=== PATIENT | male | born 1960 | race Caucasian/White ===

== ENCOUNTER 2017-01-02 20:39 | Emergency (ER) | payer OTHER ==
[~2017-01-02] VITALS: Ht 175.3 cm; Wt 70.0 kg
[~2017-01-02 20:39] MED LIST: INDO25CA PO
[2017-01-02 20:41] VITALS: BP 153/89; PULSE 92; RESP 15; TEMP 97.8; O2SAT 97
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
== END 2017-01-02 21:15 | disposition left against medical advice (07) ==
LOC: NEPB 20:39
DX: R07.81 Pleurodynia (principal); I10 Essential (primary) hypertension; F17.210 Nicotine dependence, cigarettes, uncomplicated; F10.20 Alcohol dependence, uncomplicated; W17.89XA Other fall from one level to another, initial encounter; Y93.9 Activity, unspecified; Y92.9 Unspecified place or not applicable; Y99.9 Unspecified external cause status
CPT/HCPCS: 99283

== ENCOUNTER 2017-01-10 15:30 | Emergency (ER) | payer OTHER ==
[~2017-01-10] VITALS: Ht 175.3 cm; Wt 70.0 kg
--- NOTE | 2017-01-10 15:32 | PD ---
HPI Chief Complaint: shortness of breath, chest pain Time Seen by Provider: 15:32 Travel History International Travel<30 days: No Contact w/Intl Traveler<30days: No History of Present Illness HPI 56-year-old male came to the emergency room with history of difficulty breathing due to rib fractures that he was diagnosed with 2 weeks ago. Patient says that he was not sent home on any pain medication. Because of the pain he was unable to take deep breaths. Now the shortness of breath is getting worse. Patient is a smoker. The rib fracture was a result of a fall 2 weeks ago when he was seen in this emergency room. Upon looking at his past medical record from last visit it seems like patient had left against medical advise. Patient told me that he did not get any pain medication and hence he decided to leave. Patient has never been hospitalized for COPD or asthma. Patient was saturating 94% on room air in triage. He was hemodynamically stable otherwise. PFSH Past Medical History Narrative Medical List of his past medical history as reviewed from the nursing note. Cardiovascular Problems: Yes (HTN, ) Gout: Yes Seizures: Yes (ONE 5 YEARS AGO ) Past Surgical History Other Surgery: Yes (SKIN GRAFT ) Social History Alcohol Use: Yes (3 BEERS A DAY ) Tobacco Use: Yes (1/2 PACK A DAY ) Substance Use: No Allergies-Medications (Allergen,Severity, Reaction): Coded Allergies: No Known Allergies (Unverified , 01/02/17) Comments No known drug allergies. Reported Meds & Prescriptions Reported Meds & Active Scripts Active Hydrocodone-Acetaminophen 5-325 mg Tab 1 Tab PO Q6H PRN Prednisone 20 Mg Tab 20 Mg PO BID 5 Days Ventolin Hfa 18 GM Inh (Albuterol Sulfate) 90 Mcg/Act Aer 2 Puff INH Q4-6H PRN Narrative Medication Awaiting for the nurse to med reconciliation. Review of Systems Except as stated in HPI: all other systems reviewed are Neg Physical Exam Narrative GENERAL: Awake, alert, mild distress SKIN: Warm and dry. HEAD: Atraumatic. Normocephalic. EYES: Pupils equal and round. No scleral icterus. No injection or drainage. ENT: No nasal bleeding or discharge. Mucous membranes pink and moist. NECK: Trachea midline. No JVD. CARDIOVASCULAR: Regular rate and rhythm. No murmur appreciated. RESPIRATORY: Decreased breath sounds bilaterally with end expiratory wheeze GASTROINTESTINAL: Abdomen soft, non-tender, nondistended. Hepatic and splenic margins not palpable. MUSCULOSKELETAL: No obvious deformities. No clubbing. No cyanosis. No edema. NEUROLOGICAL: Awake and alert. No obvious cranial nerve deficits. Motor grossly within normal limits. Normal speech. PSYCHIATRIC: Appropriate mood and affect; insight and judgment normal. Data Data Last Documented VS Vital Signs Date Time Temp Pulse Resp B/P Pulse Ox O2 Delivery O2 Flow Rate FiO2 01/10/17 18:30 100 15 124/60 100 01/10/17 16:24 21 01/10/17 15:36 Room Air 01/10/17 15:33 98.3 Orders Chest, Single Ap (01/10/17 15:58) Ecg Monitoring (01/10/17 15:58) Iv Access Insert/Monitor (01/10/17 15:58) Oximetry (01/10/17 15:58) Oxygen Administration (01/10/17 15:58) Methylprednisolone So Succ Inj (Solumedr (01/10/17 16:00) Albuterol-Ipratropium Neb (Duoneb Neb) (01/10/17 16:00) Sodium Chloride 0.9% Flush (Ns Flush) (01/10/17 16:00) Ketorolac Inj (Toradol Inj) (01/10/17 16:00) Acetamin-Hydrocod 325-5 Mg ([place] 5-325 (01/10/17 16:00) Electrocardiogram (01/10/17 15:42) Albuterol-Ipratropium Neb (Duoneb Neb) (01/10/17 17:45) MDM Medical Decision Making Medical Screen Exam Complete: Yes Emergency Medical Condition: Yes Medical Record Reviewed: Yes Interpretation(s) Twelve-lead EKG was reviewed by me. Normal sinus rhythm, normal axis, nonspecific ST-T wave changes, tachycardia. Heart rate of 103 bpm. Differential Diagnosis Pneumothorax, pneumonia, COPD exacerbation, PE Narrative Course 4:30 PM awaiting for the blood test results and chest x-ray. I have ordered 3 duo nebs with IV Solu-Medrol bolus. I have ordered pain medication as well. 5:39 PM I have reassessed the patient and he sounds much better. He still has some end expiratory wheeze and I ordered 2 more albuterol nebulizers. Chest x- rays shows healing rib fracture, otherwise within normal limit. I will discharge the patient home. Procedures EKG Prior to Arrival: Yes Diagnosis Primary Impression: COPD with acute exacerbation Additional Impressions: Fracture of rib with routine healing Qualified Code: S22.32XD - Closed fracture of one rib of left side with routine healing, subsequent encounter Needs smoking cessation education Referrals: Primary Care Physician 2 days Additional Instructions: Please return to the ER if the condition worsens or any other new concerns. Otherwise follow-up with your primary care. Take the medications as per the prescription direction. Do not smoke. Med/Other Pt SpecificInfo: Prescription(s) given Scripts Hydrocodone-Acetaminophen 5-325 mg Tab1 Tab PO Q6H PRN (PAIN) #8 TAB Ref 0 Prov:Alejandrina Naqvi MD 01/10/17 Prednisone 20 Mg Tab20 Mg PO BID 5 Days Ref 0 Prov:Alejandrina Naqvi MD 01/10/17 Albuterol 18 GM Inh (Ventolin Hfa 18 GM Inh)90 Mcg/Act Aer2 Puff INH Q4-6H PRN ( SHORTNESS OF BREATH) #1 INHALER Ref 0 Prov:Alejandrina Naqvi MD 01/10/17 Disposition: 01 DISCHARGE HOME Condition: Stable Alejandrina Naqvi MD Jan 10, 2017 15:32
[2017-01-10 15:33] VITALS: BP 136/82; PULSE 100; RESP 15; TEMP 98.3; O2SAT 94
[2017-01-10 15:36] VITALS: O2SAT 97
[2017-01-10] MEDS ORDERED: SODIUM CHLORIDE 0.9% FLUSH 5 ML FLUSH IVF PRN (16:00)
[2017-01-10] MEDS ORDERED: methylPREDNISolone SOD SUCC 125 MG/2 ML VIAL IVP ONE (16:00)
[2017-01-10] MEDS ORDERED: KETOROLAC TROMETHAMINE 30 MG/ML (IVP) VIAL IV PUSH ONE (16:00)
[2017-01-10] MEDS ORDERED: ACETAMINOPHEN/HYDROcodone 325 MG/5 MG TAB PO ONE (16:00)
[2017-01-10] MEDS: RESP: ALBUTEROL 2.5 MG/IPRATROPIUM 0.5 MG NEB (SCH) INH ×3 (16:23→17:51)
[2017-01-10 16:24] VITALS: O2SAT 93
--- NOTE | 2017-01-10 17:06 | RADRPT ---
EXAM DATE/TIME: 01/10/2017 14:30 [facility] COMPARISON: CHEST SINGLE AP, October 10, 2016, 16:58. INDICATIONS : Patient fell two weeks ago and hit cement block on his back. She complains of chest pain. MEDICAL HISTORY : None. SURGICAL HISTORY : None. ENCOUNTER: Initial ACUITY: 2 weeks PAIN SCORE: 10/10 LOCATION: Left Ribs. FINDINGS: A single view of the chest demonstrates the lungs to be symmetrically aerated without evidence of mas s, infiltrate or effusion. The cardiomediastinal contours are unremarkable. Osseous structures are intact except for a healing fracture of left posterior lateral fourth rib. There is no pneumothorax. CONCLUSION: 1. No acute cardiopulmonary disease. 2. Healing fracture of the left posterior lateral fourth rib. Wiliam Daley MD on January 10, 2017 at 17:03 Board Certified Radiologist. This report was verified electronically.
[2017-01-10] MEDS ORDERED: HYDR-3516 PO (17:43)
[2017-01-10] MEDS ORDERED: PRED20 PO (17:43)
[2017-01-10] MEDS ORDERED: VENTAER INH (17:43)
[2017-01-10 18:30] VITALS: BP 124/60
--- NOTE | 2017-01-11 18:14 | EKG ---
Date Performed: 01/10/2017 Time Performed: 15:42:45 PTAGE: 56 years EKG: SINUS TACHYCARDIA MINIMAL ST DEPRESSION ABNORMAL RHYTHM ECG NO PREVIOUS TRACING DOCTOR: Cesar Batista Interpretating Date/Time 01/11/2017 18:12:12
== END 2017-01-10 18:43 | disposition home or self-care (01) ==
LOC: NEPE 15:30
DX: J44.1 Chronic obstructive pulmonary disease with (acute) exacerbation (principal); S22.32XD Fracture of one rib, left side, subsequent encounter for fracture with routine healing; R00.0 Tachycardia, unspecified; R06.00 Dyspnea, unspecified; F17.210 Nicotine dependence, cigarettes, uncomplicated; I10 Essential (primary) hypertension; W19.XXXD Unspecified fall, subsequent encounter
CPT/HCPCS: 71010; 93005; 94640; 94664; 96374; 96375; 99284; J1885; J2930

== ENCOUNTER 2017-03-07 15:11 | Emergency (ER) | payer OTHER ==
[~2017-03-07] VITALS: Ht 175.3 cm; Wt 71.0 kg
[~2017-03-07 15:11] MED LIST changes: +HYDR-3516 PO; -INDO25CA PO; +PRED20 PO; +VENTAER INH
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
[2017-03-07 15:54] VITALS: BP 141/78; PULSE 87; RESP 18; TEMP 98.2; O2SAT 99
[2017-03-07] MEDS ORDERED: ORPHENADRINE INJ 60 MG/2 ML AMP IM ONE (16:00)
[2017-03-07] MEDS ORDERED: KETOROLAC TROMETHAMINE 60 MG/2 ML (IM) VIAL IM ONE (16:00)
== END 2017-03-07 16:40 | disposition home or self-care (01) ==
LOC: NEPK 15:11
DX: M54.5 Low back pain (principal); G89.29 Other chronic pain
CPT/HCPCS: 96372; 99283; J1885; J2360

== ENCOUNTER 2017-03-28 16:17 | Emergency (ER) | payer OTHER ==
[~2017-03-28] VITALS: Ht 175.3 cm; Wt 72.0 kg
[2017-03-28 16:28] VITALS: PULSE 94; RESP 16; TEMP 98.8; O2SAT 95
[2017-03-28] MEDS ORDERED: SODIUM CHLOR 0.9% 1000 ML INJ 1,000 ML IV ONE (17:45)
[2017-03-28] MEDS ORDERED: SODIUM CHLORIDE 0.9% FLUSH 10 ML FLUSH IVF PRN (17:45)
[2017-03-28 17:54] VITALS: O2SAT 96
--- NOTE | 2017-03-28 18:02 | PD ---
HPI Chief Complaint: Fall Time Seen by Provider: 17:31 Travel History International Travel<30 days: No Contact w/Intl Traveler<30days: No Traveled to known affect area: No History of Present Illness HPI Patient is a 56-year-old male with history of hypertension and COPD, who presents to emergency room with complaints of right-sided chest pain. Patient reports that he was seen in the hospital on January 10, 2017 as he fell and broke 2 ribs on his right side 2 weeks prior. Patient reports that he still has pain to his right side of his ribs. Patient reports that now, it hurts when he takes a deep breath. Reports that it hurts when he moves or reports pain with slight motion to his right lower ribs. Reports that his chest pain is really right sided rib pain, denies diaphoresis, reports sob as he cannot take a deep breath with this pain. Denies cough/congestion, denies fevers or chills. Denies abdominal pain, nausea vomiting. Patient denies any new falls. Patient does admit to being an alcoholic, reports that he did drink 2 beers today prior to coming to the emergency room. FORMERLY [facility] Past Medical History Medical History: Denies Significant Hx Cardiovascular Problems: Yes (HTN) COPD: Yes Gout: Yes Hypertension: Yes Respiratory: Yes (copd) Seizures: Yes Past Surgical History Surgical History: No Previous Surgery Other Surgery: Yes (SKIN GRAFT ) Social History Alcohol Use: Yes (6 PACK ) Tobacco Use: Yes (1 PACK A DAY ) Substance Use: No Allergies-Medications (Allergen,Severity, Reaction): Coded Allergies: No Known Allergies (Unverified , 03/28/17) Reported Meds & Prescriptions Reported Meds & Active Scripts Active Ibuprofen 600 Mg Tab 600 Mg PO Q6H PRN Review of Systems General / Constitutional: No: Fever Eyes: No: Visual changes HENT: No: Headaches Cardiovascular: Positive: Chest Pain or Discomfort, Other (right-sided rib pain ), No: Tachycardia, Diaphoresis, Syncope Respiratory: Positive: Shortness of Breath Gastrointestinal: No: Abdominal Pain Genitourinary: No: Dysuria Musculoskeletal: No: Pain Skin: No Rash Neurologic: No: Weakness Psychiatric: No: Depression Endocrine: No: Polydipsia Hematologic/Lymphatic: No: Easy Bruising Physical Exam Narrative GENERAL: No acute distress, nontoxic, intoxicated SKIN: Focused skin assessment warm/dry. HEAD: Atraumatic. Normocephalic. EYES: Pupils equal and round. No scleral icterus. No injection or drainage. ENT: No nasal bleeding or discharge. Mucous membranes pink and moist. NECK: Trachea midline. No JVD. CARDIOVASCULAR: Regular rate and rhythm. No murmur appreciated. Patient with pain to his right lower ribs, pain is reproducible on exam RESPIRATORY: No accessory muscle use. Clear to auscultation. Breath sounds equal bilaterally. GASTROINTESTINAL: Abdomen soft, non-tender, nondistended. Hepatic and splenic margins not palpable. MUSCULOSKELETAL: No obvious deformities. No clubbing. No cyanosis. No edema. NEUROLOGICAL: Awake and alert. No obvious cranial nerve deficits. Motor grossly within normal limits. Normal speech. PSYCHIATRIC: Appropriate mood and affect; insight and judgment normal. Data Data Last Documented VS Vital Signs Date Time Temp Pulse Resp B/P Pulse Ox O2 Delivery O2 Flow Rate FiO2 03/28/17 19:07 79 22 127/82 95 Room Air 03/28/17 17:54 2 03/28/17 16:28 98.8 Orders Ckmb (Isoenzyme) Profile (03/28/17 17:42) Complete Blood Count With Diff (03/28/17 17:42) Comprehensive Metabolic Panel (03/28/17 17:42) D-Dimer (03/28/17 17:42) Magnesium (Mg) (03/28/17 17:42) Prothrombin Time / Inr (Pt) (03/28/17 17:42) Act Partial Throm Time (Ptt) (03/28/17 17:42) Troponin I (03/28/17 17:42) Lipase (03/28/17 17:42) Chest, Single Ap (03/28/17 17:42) Ecg Monitoring (03/28/17 17:42) Iv Access Insert/Monitor (03/28/17 17:42) Oximetry (03/28/17 17:42) Sodium Chloride 0.9% Flush (Ns Flush) (03/28/17 17:45) Drug Screen, Random Urine (03/28/17 17:42) Alcohol (Ethanol) (03/28/17 17:42) Sodium Chlor 0.9% 1000 Ml Inj (Ns 1000 M (03/28/17 17:45) Ketorolac Inj (Toradol Inj) (03/28/17 19:15) Ct Pulmonary Angiogram (03/28/17 19:11) CKMB (03/28/17 18:02) CKMB% (03/28/17 18:02) Iohexol 350 Inj (Omnipaque 350 Inj) (03/28/17 20:13) Electrocardiogram (03/28/17 16:30) Ckmb (Isoenzyme) Profile (03/28/17 21:01) Troponin I (03/28/17 21:01) CKMB (03/28/17 21:08) CKMB% (03/28/17 21:08) Labs Laboratory Tests Test 03/28/17 03/28/17 03/28/17 18:02 19:55 21:08 Prothrombin Time 11.0 SEC Prothromb Time International 1.0 RATIO Ratio Activated Partial 28.7 SEC Thromboplast Time D-Dimer Quantitative (PE/DVT) 0.80 MG/L FEU Sodium Level 146 MEQ/L Potassium Level 3.8 MEQ/L Chloride Level 112 MEQ/L Carbon Dioxide Level 24.0 MEQ/L Anion Gap 10 MEQ/L Blood Urea Nitrogen 6 MG/DL Creatinine 0.60 MG/DL Estimat Glomerular Filtration 140 ML/MIN Rate Random Glucose 89 MG/DL Calcium Level 7.9 MG/DL Magnesium Level 1.8 MG/DL Total Bilirubin 0.3 MG/DL Aspartate Amino Transf 142 U/L (AST/SGOT) Alanine Aminotransferase 92 U/L (ALT/SGPT) Alkaline Phosphatase 102 U/L Total Creatine Kinase 275 U/L 187 U/L Creatine Kinase MB 2.1 NG/ML 1.8 NG/ML Troponin I LESS THAN 0.02 LESS THAN 0.02 NG/ML NG/ML Total Protein 6.8 GM/DL Albumin 3.2 GM/DL Lipase 276 U/L Ethyl Alcohol Level 352 MG/DL White Blood Count 3.2 TH/MM3 Red Blood Count 3.90 MIL/MM3 Hemoglobin 13.1 GM/DL Hematocrit 40.1 % Mean Corpuscular Volume 102.6 FL Mean Corpuscular Hemoglobin 33.7 PG Mean Corpuscular Hemoglobin 32.8 % Concent Red Cell Distribution Width 14.0 % Platelet Count 123 TH/MM3 Mean Platelet Volume 8.6 FL Neutrophils (%) (Auto) 37.7 % Lymphocytes (%) (Auto) 42.4 % Monocytes (%) (Auto) 12.5 % Eosinophils (%) (Auto) 5.5 % Basophils (%) (Auto) 1.9 % Neutrophils # (Auto) 1.2 TH/MM3 Lymphocytes # (Auto) 1.3 TH/MM3 Monocytes # (Auto) 0.4 TH/MM3 Eosinophils # (Auto) 0.2 TH/MM3 Basophils # (Auto) 0.1 TH/MM3 CBC Comment DIFF FINAL Differential Comment MDM Medical Decision Making Medical Screen Exam Complete: Yes Emergency Medical Condition: Yes Interpretation(s) EKG at 1630: NSR at 92bpm, qt/qtc: 360/409, nonspecific st and t wave changes, ekg similar to ekg from 01/10/17 Vital Signs Date Time Temp Pulse Resp B/P Pulse Ox O2 Delivery O2 Flow Rate FiO2 03/28/17 16:28 98.8 94 16 95 Differential Diagnosis ACS, PE, rib fracture with routine healing, pneumothorax, costochondritis Narrative Course Patient is a 56-year-old male who presents to emergency room with complaints of right-sided rib pain/chest pain. Reports that the pain began a while ago after he fell and had right sided rib fractures. Patient was seen in emergency room on January 10, 2017 as he reported that he fell 2 weeks prior to that and broke 2 right sided ribs. Patient reports that pain never went away and is now worse. Patient reports shortness of breath of symptoms. Patient reports pain with deep breath, and with movement. Denies fever/chills. Denies n/v. Patient resting comfortably on exam. Plan to obtain lab work and xray of chest. EKG with no acute st or t wave changes. I do not believe that patient is having a cardiac event at this time as patient reports pain exactly where his rib fractures are. Patient's pulse ox is 94% on room air - he does have hx of COPD and is a 1ppd smoker, d.dimer ordered to r/o PE. Patient with no recent travels/trips Plan to monitor patient. Laboratory Tests Test 03/28/17 03/28/17 18:02 19:55 Prothrombin Time 11.0 SEC (9.8-11.6) Prothromb Time International 1.0 RATIO Ratio Activated Partial 28.7 SEC Thromboplast Time (24.3-30.1) D-Dimer Quantitative (PE/DVT) 0.80 MG/L FEU (0.00-0.50) Sodium Level 146 MEQ/L (136-145) Potassium Level 3.8 MEQ/L (3.5-5.1) Chloride Level 112 MEQ/L (98-107) Carbon Dioxide Level 24.0 MEQ/L (21.0-32.0) Anion Gap 10 MEQ/L (5-15) Blood Urea Nitrogen 6 MG/DL (7-18) Creatinine 0.60 MG/DL (0.60-1.30) Estimat Glomerular Filtration 140 ML/MIN Rate (>89) Random Glucose 89 MG/DL (74-106) Calcium Level 7.9 MG/DL (8.5-10.1) Magnesium Level 1.8 MG/DL (1.5-2.5) Total Bilirubin 0.3 MG/DL (0.2-1.0) Aspartate Amino Transf 142 U/L (15-37) (AST/SGOT) Alanine Aminotransferase 92 U/L (12-78) (ALT/SGPT) Alkaline Phosphatase 102 U/L (45-117) Total Creatine Kinase 275 U/L (39-308) Creatine Kinase MB 2.1 NG/ML (0.5-3.6) Troponin I LESS THAN 0.02 NG/ML (0.02-0.05) Total Protein 6.8 GM/DL (6.4-8.2) Albumin 3.2 GM/DL (3.4-5.0) Lipase 276 U/L (73-393) Ethyl Alcohol Level 352 MG/DL (0-5) White Blood Count 3.2 TH/MM3 (4.0-11.0) Red Blood Count 3.90 MIL/MM3 (4.50-5.90) Hemoglobin 13.1 GM/DL (13.0-17.0) Hematocrit 40.1 % (39.0-51.0) Mean Corpuscular Volume 102.6 FL (80.0-100.0) Mean Corpuscular Hemoglobin 33.7 PG (27.0-34.0) Mean Corpuscular Hemoglobin 32.8 % Concent (32.0-36.0) Red Cell Distribution Width 14.0 % (11.6-17.2) Platelet Count 123 TH/MM3 (150-450) Mean Platelet Volume 8.6 FL (7.0-11.0) Neutrophils (%) (Auto) 37.7 % (16.0-70.0) Lymphocytes (%) (Auto) 42.4 % (9.0-44.0) Monocytes (%) (Auto) 12.5 % (0.0-8.0) Eosinophils (%) (Auto) 5.5 % (0.0-4.0) Basophils (%) (Auto) 1.9 % (0.0-2.0) Neutrophils # (Auto) 1.2 TH/MM3 (1.8-7.7) Lymphocytes # (Auto) 1.3 TH/MM3 (1.0-4.8) Monocytes # (Auto) 0.4 TH/MM3 (0-0.9) Eosinophils # (Auto) 0.2 TH/MM3 (0-0.4) Basophils # (Auto) 0.1 TH/MM3 (0-0.2) CBC Comment DIFF FINAL Differential Comment Last Impressions CT Angiography 03/28/17 1911 Signed Impressions: Service Date/Time: March 20:00 - CONCLUSION: There is no evidence for PE for technique. K. Lauro Song MD Chest X-Ray 03/28/17 1742 Signed Impressions: Service Date/Time: March 17:44 - CONCLUSION: No acute disease. Wiliam Daley MD CTA with evidence of PE Reviewed all labs and all studies with patient in detail. Plan to repeat cardiac enzyme, will have patient follow-up with his primary care doctor and return to emergency medicine needed. Second set of cardiac enzymes negative, patient's chest pain most likely musculoskeletal and not cardiac in nature. Patient will follow-up with primary care doctor as well as cardiology and will return to emergency room as needed. 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
--- NOTE | 2017-03-28 18:06 | RADRPT ---
EXAM DATE/TIME: 03/28/2017 17:44 [facility] COMPARISON: CHEST SINGLE AP, January 10, 2017, 14:30. INDICATIONS : Right side rib pain, fell MEDICAL HISTORY : Right rib fractures SURGICAL HISTORY : None. ENCOUNTER: [facility] ACUITY: 3 weeks PAIN SCORE: 8/10 LOCATION: Right chest FINDINGS: A single view of the chest demonstrates the lungs to be symmetrically aerated without evidence of mas s, infiltrate or effusion. The cardiomediastinal contours are unremarkable. Osseous structures are intact. CONCLUSION: No acute disease. Wiliam Daley MD on March 28, 2017 at 18:04 Board Certified Radiologist. This report was verified electronically.
[2017-03-28 18:52] VITALS: BP 142/85; PULSE 79; RESP 18; O2SAT 96
[2017-03-28 18:56] LABS: APTT (PATIENT) 28.7 SEC (24.3-30.1)
[2017-03-28 19:07] VITALS: BP 127/82; PULSE 79; RESP 22; O2SAT 95
[2017-03-28 19:10] LABS: ALKALINE PHOSPHATASE 102 U/L (45-117); ALT (GPT) 92 U/L (12-78); ANION GAP 10 MEQ/L (5-15); AST (GOT) 142 U/L (15-37); BLOOD UREA NITROGEN 6 MG/DL (7-18); CHLORIDE 112 MEQ/L (98-107); CREATINE KINASE 275 U/L (39-308); GLOMERULAR FILTRATION RATE 140 ML/MIN (>89); MAGNESIUM 1.8 MG/DL (1.5-2.5); POTASSIUM 3.8 MEQ/L (3.5-5.1); SODIUM (NA) 146 MEQ/L (136-145); TOTAL BILIRUBIN ADULT 0.3 MG/DL (0.2-1.0)
[2017-03-28] MEDS ORDERED: KETOROLAC TROMETHAMINE 30 MG/ML (IVP) VIAL IV PUSH ONE (19:15)
[2017-03-28 19:30] LABS: CKMB 2.1 NG/ML (0.5-3.6)
[2017-03-28 20:03] LABS: AUTOMATED NEUTROPHIL # 1.2 TH/MM3 (1.8-7.7); BASOPHIL # 0.1 TH/MM3 (0-0.2); BASOPHIL % 1.9 % (0.0-2.0); EOSINOPHIL # 0.2 TH/MM3 (0-0.4); EOSINOPHIL % 5.5 % (0.0-4.0); HEMATOCRIT 40.1 % (39.0-51.0); HEMO FLAGS DIFF FINAL; LYMPH % 42.4 % (9.0-44.0); LYMPHOCYTE # 1.3 TH/MM3 (1.0-4.8); MEAN CELL VOLUME 102.6 FL (80.0-100.0); MEAN CORPUSCULAR HEMOGLOBIN 33.7 PG (27.0-34.0); MEAN CORPUSCULAR HGB CONC 32.8 % (32.0-36.0); MONO % 12.5 % (0.0-8.0); NEUT % 37.7 % (16.0-70.0); PLATELET COUNT 123 TH/MM3 (150-450); WHITE BLOOD COUNT 3.2 TH/MM3 (4.0-11.0)
[2017-03-28] MEDS ORDERED: IOHEXOL 350 MG/ML 10 ML VIAL (for RAD DIAG) IV ONE (20:13)
--- NOTE | 2017-03-28 20:27 | RADRPT ---
EXAM DATE/TIME: 03/28/2017 20:00 [facility] COMPARISON: No previous studies available for comparison. INDICATIONS : Right rib pain ,chest pain fell two weeks ago. IV CONTRAST: 50 cc Omnipaque 350 (iohexol) IV RADIATION DOSE: 23.28 CTDIvol (mGy) MEDICAL HISTORY : Hypertension. SURGICAL HISTORY : None. ENCOUNTER: Initial ACUITY: 1 day PAIN SCALE: 10/10 LOCATION: Right chest upper TECHNIQUE: Volumetric scanning of the chest was performed using a pulmonary embolism protocol MIP images were re constructed. Using automated exposure control and adjustment of the mA and/or kV according to patien t size, radiation dose was kept as low as reasonably achievable to obtain optimal diagnostic quality images. FINDINGS: The lungs are clear without infiltrate, nodule, or mass except for COPD changes with areas of linear and interstitial scarrings in anterior lungs bilaterally. There is no pleural effusion. No apprecia ble pathological adenopathy is seen within the mediastinum. There is no evidence for PE for technique . CONCLUSION: There is no evidence for PE for technique. yRan Song MD on March 28, 2017 at 20:23 Board Certified Radiologist. This report was verified electronically.
--- NOTE | 2017-03-28 21:00 | EKG ---
Date Performed: 03/28/2017 Time Performed: 16:30:43 PTAGE: 56 years EKG: Sinus rhythm Borderline NONSPECIFIC ST & T-WAVE ABNORMALITY BORDERLINE ECG NO SIGNIFICANT CHANGE FROM PRIOR ELECT ROCARDIOGRAM. PREVIOUS TRACING : 01/10/2017 15.42 DOCTOR: Jose Camp Interpretating Date/Time 03/28/2017 20:59:46
[2017-03-28] MEDS ORDERED: IBUP-232 PO (21:05)
[2017-03-28 21:35] LABS: CREATINE KINASE 187 U/L (39-308)
[2017-03-28 21:47] LABS: CKMB 1.8 NG/ML (0.5-3.6)
[2017-03-29 06:57] VITALS: BP 174/89
== END 2017-03-29 06:58 | disposition home or self-care (01) ==
LOC: NEPD 16:17
DX: S22.32XD Fracture of one rib, left side, subsequent encounter for fracture with routine healing (principal); F10.120 Alcohol abuse with intoxication, uncomplicated; R07.1 Chest pain on breathing; I10 Essential (primary) hypertension; F17.210 Nicotine dependence, cigarettes, uncomplicated; Y90.8 Blood alcohol level of 240 mg/100 ml or more; W19.XXXD Unspecified fall, subsequent encounter
CPT/HCPCS: 71010; 71275; 80053; 80307; 82550; 82552; 83690; 83735; 84484; 85025; 85379; 85610; 85730; 93005; 96361; 96374; 99284; J1885; J7030; Q9967

== ENCOUNTER 2017-06-06 14:22 | Emergency (ER) | payer OTHER ==
[~2017-06-06] VITALS: Ht 175.3 cm; Wt 70.0 kg
[~2017-06-06 14:22] MED LIST changes: -HYDR-3516 PO; +IBUP-232 PO; -PRED20 PO; -VENTAER INH
[2017-06-06 14:36] VITALS: BP 107/74; PULSE 90; RESP 18; TEMP 98.1; O2SAT 97
[2017-06-06] MEDS ORDERED: SODIUM CHLOR 0.9% 1000 ML INJ 1,000 ML IV SCH (14:37)
[2017-06-06 14:39] VITALS: O2SAT 97
--- NOTE | 2017-06-06 14:41 | PD ---
HPI Chief Complaint: syncope Time Seen by Provider: 14:30 Travel History International Travel<30 days: No Contact w/Intl Traveler<30days: No Traveled to known affect area: No History of Present Illness HPI This is a 56-year-old male with history of COPD and hypertension, tobacco use, seen here several times in the past for alcohol intoxication. He presents via EMS for evaluation of syncope, chest pain. He reports that around noon today he was standing near some steps speaking to some people and he had a syncopal event. He awoke on the ground. There was no reported seizure activity although he does have a history of seizures in the past. He is complaining of pain to the left side of his anterior chest as well as pain to the right posterior rib cage. Pain is a sharp pain that is worse with movement and inspiration. He endorses alcohol use throughout the morning. He denies shortness of breath, headache, neck or back pain, injury to the extremities. He was given 162 mg of aspirin and one nitroglycerin via EMS. He has no other complaints. PFSH Past Medical History Cardiovascular Problems: Yes (HTN) COPD: Yes Gout: Yes Hypertension: Yes Respiratory: Yes (copd) Seizures: Yes Past Surgical History Other Surgery: Yes (SKIN GRAFT ) Social History Alcohol Use: Yes (6 PACK ) Tobacco Use: Yes (1 PACK A DAY ) Substance Use: No Allergies-Medications (Allergen,Severity, Reaction): Coded Allergies: No Known Allergies (Unverified , 03/28/17) Reported Meds & Prescriptions Reported Meds & Active Scripts Active Ibuprofen 600 Mg Tab 600 Mg PO Q6H PRN Review of Systems Except as stated in HPI: all other systems reviewed are Neg Physical Exam Narrative GENERAL: This is a well-nourished male who is in no acute distress. He has slurred speech, he smells of alcohol. 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 HEAD: Atraumatic. Normocephalic. EYES: Pupils equal and round. No scleral icterus. No injection or drainage. ENT: No nasal bleeding or discharge. Mucous membranes pink and moist. NECK: Trachea midline. No JVD. CARDIOVASCULAR: Regular rate and rhythm. No murmur appreciated. RESPIRATORY: No accessory muscle use. Clear to auscultation. Breath sounds equal bilaterally. Mild wheezing bilaterally. GASTROINTESTINAL: Abdomen soft, non-tender, nondistended. Hepatic and splenic margins not palpable. MUSCULOSKELETAL: No obvious deformities. There is tenderness to palpation to the anterior left chest wall and posterior right rib cage. There is no bruising or soft tissue swelling. There is no lower extremity edema. NEUROLOGICAL: Awake and alert. No obvious cranial nerve deficits. Motor grossly within normal limits. Slurred speech. PSYCHIATRIC: Appropriate mood and affect; insight and judgment normal. Data Data Last Documented VS Vital Signs Date Time Temp Pulse Resp B/P Pulse Ox O2 Delivery O2 Flow Rate FiO2 06/06/17 15:41 97 3.00 06/06/17 14:39 Room Air 06/06/17 14:36 98.1 90 18 107/74 Orders Electrocardiogram (06/06/17 14:37) Complete Blood Count With Diff (06/06/17 14:37) Comprehensive Metabolic Panel (06/06/17 14:37) Magnesium (Mg) (06/06/17 14:37) Ckmb (Isoenzyme) Profile (06/06/17 14:37) Troponin I (06/06/17 14:37) Chest, Single Ap (06/06/17 14:37) Ct Brain W/O Iv Contrast(Rout) (06/06/17 14:37) Ecg Monitoring (06/06/17 14:37) Iv Access Insert/Monitor (06/06/17 14:37) Oximetry (06/06/17 14:37) Sodium Chloride 0.9% Flush (Ns Flush) (06/06/17 14:45) Sodium Chlor 0.9% 1000 Ml Inj (Ns 1000 M (06/06/17 14:37) Alcohol (Ethanol) (06/06/17 14:37) Albuterol-Ipratropium Neb (Duoneb Neb) (06/06/17 14:45) CKMB (06/06/17 14:45) CKMB% (06/06/17 14:45) Labs Laboratory Tests Test 06/06/17 14:45 White Blood Count 7.0 TH/MM3 Red Blood Count 3.75 MIL/MM3 Hemoglobin 12.7 GM/DL Hematocrit 36.8 % Mean Corpuscular Volume 98.0 FL Mean Corpuscular Hemoglobin 33.9 PG Mean Corpuscular Hemoglobin 34.6 % Concent Red Cell Distribution Width 12.2 % Platelet Count 130 TH/MM3 Mean Platelet Volume 9.2 FL Neutrophils (%) (Auto) 57.9 % Lymphocytes (%) (Auto) 32.1 % Monocytes (%) (Auto) 6.0 % Eosinophils (%) (Auto) 3.5 % Basophils (%) (Auto) 0.5 % Neutrophils # (Auto) 4.1 TH/MM3 Lymphocytes # (Auto) 2.2 TH/MM3 Monocytes # (Auto) 0.4 TH/MM3 Eosinophils # (Auto) 0.2 TH/MM3 Basophils # (Auto) 0.0 TH/MM3 CBC Comment DIFF FINAL Differential Comment Sodium Level 141 MEQ/L Potassium Level 3.4 MEQ/L Chloride Level 105 MEQ/L Carbon Dioxide Level 27.5 MEQ/L Anion Gap 9 MEQ/L Blood Urea Nitrogen 11 MG/DL Creatinine 0.56 MG/DL Estimat Glomerular Filtration 151 ML/MIN Rate Random Glucose 93 MG/DL Calcium Level 7.9 MG/DL Magnesium Level 1.7 MG/DL Total Bilirubin 0.5 MG/DL Aspartate Amino Transf 40 U/L (AST/SGOT) Alanine Aminotransferase 56 U/L (ALT/SGPT) Alkaline Phosphatase 105 U/L Total Creatine Kinase 292 U/L Creatine Kinase MB 2.2 NG/ML Troponin I LESS THAN 0.02 NG/ML Total Protein 7.5 GM/DL Albumin 3.3 GM/DL Ethyl Alcohol Level 419 MG/DL MDM Medical Decision Making Medical Screen Exam Complete: Yes Emergency Medical Condition: Yes Medical Record Reviewed: Yes Interpretation(s) EKG normal sinus rhythm, rate 88, no ischemic ST changes or T-wave inversions. Differential Diagnosis Rib fracture, pneumothorax, hemothorax, contusion, strain, acute coronary syndrome, pulmonary embolism, COPD exacerbation, intracranial hemorrhage, syncope, seizure, dehydration, electrolyte abnormality Narrative Course 56-year-old male presents after having had a syncopal event. He fell and is complaining of left-sided chest wall pain and right-sided posterior rib cage pain. This is reproducible with palpation. He denies any other injuries. He admits to drinking alcohol today. He reports that he has been outside all morning in the heat because he is homeless. This fall was witnessed and there was no seizure activity. Per chart review the patient was seen here on March 28 intoxicated and he had a negative CT pulmonary angiogram. I don't suspect a pulmonary embolism today and he has no evidence of DVT. Plan is for basic lab work, EKG, ECG monitoring pulse oximetry, chest x-ray, CT of the brain. He'll be given DuoNeb therapy for his wheezing. Lab work and imaging studies have been reviewed. His cardiac enzymes are negative. Potassium is 3.4. Alcohol level was extremely elevated at 419 which is likely the etiology for his fall. Chest x-ray reveals a possible acute minimally displaced right lateral seventh rib fracture. No pneumothorax. CT the brain is normal. At this point in time the plan will be to allow the patient remain here until he is clinically sober and then he will be discharged. Procedures EKG Prior to Arrival: Yes Diagnosis Primary Impression: Alcohol intoxication Qualified Code: F10.920 - Alcohol intoxication, uncomplicated Additional Impression: Right rib fracture Qualified Code: S22.31XA - Closed fracture of one rib of right side, initial encounter Additional Instructions: Take [id number] Tylenol or Motrin for discomfort. Consider decreasing the amount of alcohol that you drink. Follow-up with primary care. Return for any emergent medical conditions. Med/Other Pt SpecificInfo: No Change to Meds Disposition: 01 DISCHARGE HOME Condition: Stable Carlos Herrera Jun 06, 2017 14:41
[2017-06-06] MEDS ORDERED: RESP: ALBUTEROL 2.5 MG/IPRATROPIUM 0.5 MG NEB (SCH) INH ONE (14:45)
[2017-06-06] MEDS ORDERED: SODIUM CHLORIDE 0.9% FLUSH 10 ML FLUSH IVF PRN (14:45)
[2017-06-06 15:11] LABS: AUTOMATED NEUTROPHIL # 4.1 TH/MM3 (1.8-7.7); BASOPHIL % 0.5 % (0.0-2.0); EOSINOPHIL # 0.2 TH/MM3 (0-0.4); EOSINOPHIL % 3.5 % (0.0-4.0); HEMATOCRIT 36.8 % (39.0-51.0); HEMO FLAGS DIFF FINAL; LYMPH % 32.1 % (9.0-44.0); LYMPHOCYTE # 2.2 TH/MM3 (1.0-4.8); MEAN CORPUSCULAR HEMOGLOBIN 33.9 PG (27.0-34.0); MEAN CORPUSCULAR HGB CONC 34.6 % (32.0-36.0); NEUT % 57.9 % (16.0-70.0); PLATELET COUNT 130 TH/MM3 (150-450); RED BLOOD COUNT 3.75 MIL/MM3 (4.50-5.90); RED CELL DISTRIBUTION WIDTH 12.2 % (11.6-17.2)
--- NOTE | 2017-06-06 15:20 | RADRPT ---
EXAM DATE/TIME: 06/06/2017 15:03 [facility] COMPARISON: No previous studies available for comparison. INDICATIONS : syncope. RADIATION DOSE: 30.59 CTDIvol (mGy) MEDICAL HISTORY : Seizures. Cardiovascular disease Hypertension. SURGICAL HISTORY : None. ENCOUNTER: Initial ACUITY: 1 day PAIN SCALE: 3/10 LOCATION: Bilateral cranial posterior region. TECHNIQUE: Multiple contiguous axial images were obtained of the head. Using automated exposure control and adj ustment of the mA and/or kV according to patient size, radiation dose was kept as low as reasonably a chievable to obtain optimal diagnostic quality images. DICOM format image data is available electro nically for review and comparison. FINDINGS: CEREBRUM: There is mild cerebral atrophy. Ventricles are normal. There is mild periventricular white matter low attenuation. No evidence of midline shift, mass lesion, hemorrhage or acute infarction. No extra-a xial fluid collections are seen. POSTERIOR FOSSA: The cerebellum and brainstem demonstrate no abnormality. The 4th ventricle is midline. The cerebell opontine angle is unremarkable. EXTRACRANIAL: The visualized portion of the orbits is intact. SKULL: The calvaria is intact. No evidence of skull fracture. CONCLUSION: 1. No acute intracranial abnormality is identified. 2. Chronic changes include mild cerebral atrophy and mild periventricular white matter low attenuatio n. Cornel Sol MD on June 06, 2017 at 15:16 Board Certified Radiologist. This report was verified electronically.
[2017-06-06 15:23] LABS: ALT (GPT) 56 U/L (12-78); ANION GAP 9 MEQ/L (5-15); AST (GOT) 40 U/L (15-37); BICARBONATE 27.5 MEQ/L (21.0-32.0); BLOOD UREA NITROGEN 11 MG/DL (7-18); CHLORIDE 105 MEQ/L (98-107); GLOMERULAR FILTRATION RATE 151 ML/MIN (>89); MAGNESIUM 1.7 MG/DL (1.5-2.5); POTASSIUM 3.4 MEQ/L (3.5-5.1); SODIUM (NA) 141 MEQ/L (136-145)
[2017-06-06 15:27] LABS: ALKALINE PHOSPHATASE 105 U/L (45-117); CREATINE KINASE 292 U/L (39-308); TOTAL BILIRUBIN ADULT 0.5 MG/DL (0.2-1.0)
--- NOTE | 2017-06-06 15:27 | RADRPT ---
EXAM DATE/TIME: 06/06/2017 14:40 [facility] COMPARISON: CHEST SINGLE AP, March 28, 2017, 17:44. INDICATIONS : Fall from concrete steps onto back. Chest pain. Short of breath. MEDICAL HISTORY : Hypertension. SURGICAL HISTORY : None. ENCOUNTER: Initial ACUITY: 1 day PAIN SCORE: 5/10 LOCATION: Bilateral chest FINDINGS: Portable upright AP view of the chest demonstrates a normal-sized cardiac silhouette. No effusion, co nsolidation, or pneumothorax identified. There is a suspected minimally displaced acute fracture invo lving the right lateral seventh rib. There are additional old rib fractures bilaterally. There are si gns of old trauma and are stable in the distal right clavicle. CONCLUSION: 1. Possible acute minimally displaced right lateral seventh rib fracture. Suggest correlation for suzy n at this site. No pneumothorax is present. 2. Otherwise, no acute cardiopulmonary abnormality is visualized. Cornel Sol MD on June 06, 2017 at 15:20 Board Certified Radiologist. This report was verified electronically.
[2017-06-06 15:41] VITALS: O2SAT 97
[2017-06-06 15:47] LABS: CKMB 2.2 NG/ML (0.5-3.6)
[2017-06-06] MEDS ORDERED: POTASSIUM CHLORIDE 20 MEQ CONTROLLED RELEASE TAB PO ONE (16:15)
[2017-06-06 18:24] VITALS: BP 105/69; PULSE 94; RESP 16; O2SAT 99
[2017-06-06 21:11] VITALS: BP 108/61; PULSE 88; RESP 16; O2SAT 97
[2017-06-07 07:31] VITALS: BP 132/92; PULSE 98; RESP 16; TEMP 98.5; O2SAT 98
--- NOTE | 2017-06-07 13:51 | EKG ---
Date Performed: 06/06/2017 Time Performed: 14:40:33 PTAGE: 56 years EKG: Sinus rhythm NORMAL ECG Compared to prior tracing no significant change PREVIOUS TRACING : 03/28/2017 16.30 DOCTOR: Jurgen Warren Interpretating Date/Time 06/07/2017 13:49:39
== END 2017-06-07 07:49 | disposition home or self-care (01) ==
LOC: NEPC 14:22 → NEPD 06-07 07:49
DX: F10.120 Alcohol abuse with intoxication, uncomplicated (principal); Y90.8 Blood alcohol level of 240 mg/100 ml or more; S22.31XA Fracture of one rib, right side, initial encounter for closed fracture; R55 Syncope and collapse; R07.9 Chest pain, unspecified; R06.02 Shortness of breath; I10 Essential (primary) hypertension; W10.9XXA Fall (on) (from) unspecified stairs and steps, initial encounter; Y93.9 Activity, unspecified; Y92.9 Unspecified place or not applicable; F17.210 Nicotine dependence, cigarettes, uncomplicated
CPT/HCPCS: 70450; 71010; 80053; 80307; 82550; 82552; 83735; 84484; 85025; 93005; 94664; 96360; 99285; J7030

== ENCOUNTER 2017-06-25 21:58 | Emergency (ER) | payer OTHER ==
[~2017-06-25] VITALS: Ht 175.3 cm; Wt 69.0 kg
[2017-06-25 22:04] VITALS: BP 131/83; PULSE 91; RESP 20; TEMP 97.6; O2SAT 95
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
[2017-06-25] MEDS ORDERED: SODIUM CHLOR 0.9% 1000 ML INJ 1,000 ML IV ONE (22:45)
[2017-06-25] MEDS ORDERED: THIAMINE INJ 100 MG in SODIUM CHLORIDE 0.9% INJ 100 ML IV ONE (22:45)
--- NOTE | 2017-06-25 22:55 | RADRPT ---
EXAM DATE/TIME: 06/25/2017 22:36 [facility] COMPARISON: CHEST SINGLE AP, June 06, 2017, 14:40. INDICATIONS : Syncope, cough. MEDICAL HISTORY : Hypertension. SURGICAL HISTORY : None. ENCOUNTER: Initial ACUITY: 1 day PAIN SCORE: 0/10 LOCATION: Bilateral chest FINDINGS: A single view of the chest demonstrates the lungs to be symmetrically aerated without evidence of mas s, infiltrate or effusion. The cardiomediastinal contours are unremarkable. Old bilateral rib fractu res. CONCLUSION: No acute disease. Antonio Moore MD on June 25, 2017 at 22:53 Board Certified Radiologist. This report was verified electronically.
[2017-06-25 23:00] LABS: AUTOMATED NEUTROPHIL # 3.7 TH/MM3 (1.8-7.7); BASOPHIL # 0.1 TH/MM3 (0-0.2); BASOPHIL % 2.1 % (0.0-2.0); EOSINOPHIL # 0.1 TH/MM3 (0-0.4); EOSINOPHIL % 2.2 % (0.0-4.0); HEMATOCRIT 41.5 % (39.0-51.0); HEMO FLAGS DIFF FINAL; LYMPHOCYTE # 2.2 TH/MM3 (1.0-4.8); MEAN CELL VOLUME 102.1 FL (80.0-100.0); MEAN CORPUSCULAR HEMOGLOBIN 34.8 PG (27.0-34.0); MEAN CORPUSCULAR HGB CONC 34.1 % (32.0-36.0); MONO % 8.3 % (0.0-8.0); NEUT % 54.4 % (16.0-70.0); PLATELET COUNT 205 TH/MM3 (150-450); RED BLOOD COUNT 4.07 MIL/MM3 (4.50-5.90); RED CELL DISTRIBUTION WIDTH 13.3 % (11.6-17.2); WHITE BLOOD COUNT 6.7 TH/MM3 (4.0-11.0)
[2017-06-25 23:12] LABS: PROTHROMBIN TIME - PATIENT 11.4 SEC (9.8-11.6)
[2017-06-25 23:19] LABS: APTT (PATIENT) 30.5 SEC (24.3-30.1)
[2017-06-25 23:26] LABS: ALT (GPT) 580 U/L (12-78); ANION GAP 10 MEQ/L (5-15); BICARBONATE 26.4 MEQ/L (21.0-32.0); BLOOD UREA NITROGEN 8 MG/DL (7-18); CHLORIDE 105 MEQ/L (98-107); MAGNESIUM 1.9 MG/DL (1.5-2.5); SODIUM (NA) 141 MEQ/L (136-145)
[2017-06-25 23:33] LABS: ALKALINE PHOSPHATASE 182 U/L (45-117); AST (GOT) 1060 U/L (15-37); CREATINE KINASE 516 U/L (39-308)
[2017-06-25 23:45] LABS: CKMB 2.4 NG/ML (0.5-3.6)
--- NOTE | 2017-06-25 23:50 | RADRPT ---
EXAM DATE/TIME: 06/25/2017 23:25 [facility] COMPARISON: CT BRAIN W/O CONTRAST, June 06, 2017, 15:03. INDICATIONS : Syncopal episiode. Dizziness. RADIATION DOSE: 33.33 CTDIvol (mGy) MEDICAL HISTORY : Hypertension. SURGICAL HISTORY : None. ENCOUNTER: Initial ACUITY: 1 day PAIN SCALE: 0/10 LOCATION: cranial TECHNIQUE: Multiple contiguous axial images were obtained of the head. Using automated exposure control and adj ustment of the mA and/or kV according to patient size, radiation dose was kept as low as reasonably a chievable to obtain optimal diagnostic quality images. DICOM format image data is available electro nically for review and comparison. FINDINGS: CEREBRUM: There is mild cerebral atrophy. Ventricles are normal. No evidence of midline shift, mass lesion, he morrhage or acute infarction. No extra-axial fluid collections are seen. POSTERIOR FOSSA: The cerebellum and brainstem demonstrate no acute finding. The 4th ventricle is midline. The cerebe llopontine angle is unremarkable. EXTRACRANIAL: Visualized sinuses are clear. SKULL: The calvaria is intact. No evidence of skull fracture. CONCLUSION: Stable noncontrast head CT. No acute intracranial abnormality is identified. Cornel Sol MD on June 25, 2017 at 23:46 Board Certified Radiologist. This report was verified electronically.
--- NOTE | 2017-06-25 23:54 | RADRPT ---
EXAM DATE/TIME: 06/25/2017 23:25 [facility] COMPARISON: No previous studies available for comparison. INDICATIONS : Trauma. Possible fall. RADIATION DOSE: 21.48 CTDIvol (mGy) MEDICAL HISTORY : None SURGICAL HISTORY : None. ENCOUNTER: Initial ACUITY: 1 day PAIN SCALE: 0/10 LOCATION: neck TECHNIQUE: Volumetric scanning of the cervical spine was performed. Multiplanar reconstructions in the sagittal, coronal and oblique axial planes were performed. Using automated exposure control and adjustment o f the mA and/or kV according to patient size, radiation dose was kept as low as reasonably achievable to obtain optimal diagnostic quality images. DICOM format image data is available electronically f or review and comparison. FINDINGS: There is normal sagittal spine alignment of the cervical spine. No anterolisthesis or retrolisthesis is present. The atlantoaxial relationship is within normal limits. There is no prevertebral soft tiss ue swelling present. No fracture or dislocation is identified. There is degenerative disease at C5-C6 and C6-C7. Facet arthrosis is present multiple levels bilaterally. The visualized portions of the posterior fossa, paraspinous soft tissues, and upper lung zones demons trate no acute abnormality. There is paraseptal emphysema at the lung apices. CONCLUSION: 1. No acute cervical spine abnormalities identified. 2. Degenerative disease is present at C5-C6 and C6-C7. There is facet arthrosis at multiple levels. Cornel Sol MD on June 25, 2017 at 23:49 Board Certified Radiologist. This report was verified electronically.
[2017-06-26] MEDS ORDERED: POTASSIUM CHLORIDE 25 MEQ EFFERVESCENT TAB PO ONE
[2017-06-26] MEDS ORDERED: SODIUM CHLOR 0.9% 1000 ML INJ 1,000 ML IV ONE
[2017-06-26] MEDS ORDERED: POTA1TAB4 PO (00:42)
--- NOTE | 2017-06-26 20:55 | EKG ---
Date Performed: 06/25/2017 Time Performed: 22:12:18 PTAGE: 56 years EKG: Sinus rhythm MINIMAL ST DEPRESSION BORDERLINE ECG Compared to prior tracing no significant change DOCTOR: Lucille Conway Interpretating Date/Time 06/26/2017 20:54:59
== END 2017-06-26 02:20 | disposition home or self-care (01) ==
LOC: NEPE 21:58
DX: R53.1 Weakness (principal); R74.8 Abnormal levels of other serum enzymes; F10.10 Alcohol abuse, uncomplicated; E87.6 Hypokalemia; R42 Dizziness and giddiness; M50.322 Other cervical disc degeneration at C5-C6 level; M50.323 Other cervical disc degeneration at C6-C7 level; I10 Essential (primary) hypertension; R56.9 Unspecified convulsions
CPT/HCPCS: 70450; 71010; 72125; 80053; 82550; 82552; 83690; 83735; 84484; 85025; 85610; 85730; 93005; 96361; 96365; 99285; J3411; J7030

== ENCOUNTER 2017-07-02 17:05 | Emergency (ER) | payer OTHER ==
[~2017-07-02] VITALS: Ht 175.3 cm; Wt 70.0 kg
[~2017-07-02 17:05] MED LIST changes: +POTA1TAB4 PO
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
[2017-07-02] MEDS ORDERED: PROPARACAINE HCL 0.5% OPHT SOLN 15 ML BTL EACH EYE ONE (18:15)
[2017-07-02] MEDS ORDERED: IBUPROFEN 800 MG TAB PO ONE (18:15)
== END 2017-07-02 19:11 | disposition home or self-care (01) ==
LOC: NEPD 17:05
DX: H11.31 Conjunctival hemorrhage, right eye (principal); F17.200 Nicotine dependence, unspecified, uncomplicated
CPT/HCPCS: 99283

== ENCOUNTER 2017-09-06 21:57 | Emergency (ER) | payer OTHER ==
[~2017-09-06] VITALS: Ht 175.3 cm; Wt 70.0 kg
[2017-09-06 22:05] VITALS: BP 122/83; PULSE 91; RESP 15; TEMP 98; O2SAT 98
[2017-09-06] MEDS ORDERED: ACETAMINOPHEN/HYDROcodone 325 MG/5 MG TAB PO ONE (23:00)
[2017-09-06] MEDS ORDERED: TRAM50TA PO (23:05)
--- NOTE | 2017-09-06 23:06 | PD ---
HPI Chief Complaint: Pain: Acute or Chronic Time Seen by Provider: 22:50 Travel History International Travel<30 days: No Contact w/Intl Traveler<30days: No Traveled to known affect area: No History of Present Illness HPI 57 yo M fall down stairs with outstretched hands. pain into left shoulder with radiation to the neck. similar prior events have occurred. pain radiates to the neck from the shoulder. no head injury. pain is moderate to severe. PFSH Past Medical History Cardiovascular Problems: Yes (HTN) COPD: Yes Diminished Hearing: No Gout: Yes Hypertension: Yes Respiratory: Yes (copd) Seizures: Yes Past Surgical History Other Surgery: Yes (SKIN GRAFT ) Social History Alcohol Use: Yes (5-8 beers per day) Tobacco Use: Yes (one pack per day) Substance Use: No (pt denies using any other drugs ) Allergies-Medications (Allergen,Severity, Reaction): Coded Allergies: No Known Allergies (Unverified , 09/06/17) Reported Meds & Prescriptions Reported Meds & Active Scripts Active No Active Prescriptions or Reported Medications Review of Systems General / Constitutional: No: Fever Musculoskeletal: Positive: Pain Physical Exam Narrative GENERAL: wnwd, 57 yo M SKIN: Warm and dry. HEAD: Atraumatic. Normocephalic. MUSCULOSKELETAL: Normal ROM bilateral upper extremities. TTP along L shoulder anteriorly/posteriorly. + TTP L lateral neck. 2+ radial artery pulses bilaterally. NEUROLOGICAL: Awake and alert. No obvious cranial nerve deficits. Motor grossly within normal limits. Five out of 5 muscle strength in the arms and legs. Normal speech. Data Data Last Documented VS Vital Signs Date Time Temp Pulse Resp B/P (MAP) Pulse Ox O2 Delivery O2 Flow Rate FiO2 09/06/17 22:05 98.0 91 15 122/83 (96) 98 Room Air VS reviewed Orders Orders Acetamin-Hydrocod 325-5 Mg ([place] 5-325 (09/06/17 23:00) ^ Sling (09/06/17 23:00) MDM Medical Decision Making Medical Screen Exam Complete: Yes Emergency Medical Condition: Yes Medical Record Reviewed: Yes Differential Diagnosis fracture, dislocation, contusion Narrative Course ROM intact, no gross deformity, fracture unlikely pain control ice rest f/u ortho Diagnosis Primary Impression: Neck strain Qualified Codes: S16.1XXA - Strain of muscle, fascia and tendon at neck level , initial encounter Additional Impression: Left shoulder strain Qualified Codes: S46.912A - Strain of unspecified muscle, fascia and tendon at shoulder and upper arm level, left arm, initial encounter Referrals: Diana Bruce MD call for appointment Additional Instructions: PLEASE FOLLOW UP ORTHOPEDICS REST ICE TRAMADOL NEEDED Med/Other Pt SpecificInfo: Prescription(s) given Scripts Tramadol (Tramadol) 50 Mg Tab 100 MG PO Q6H Y for PAIN SCALE 6 TO 10, #20 TAB 0 Refills Prov: Denilson Patel MD 09/06/17 Disposition: 01 DISCHARGE HOME Condition: Stable Denilson Patel MD Sep 06, 2017 23:06
== END 2017-09-06 23:50 | disposition home or self-care (01) ==
LOC: NEPK 21:57
DX: S16.1XXA Strain of muscle, fascia and tendon at neck level, initial encounter (principal); S46.912A Strain of unspecified muscle, fascia and tendon at shoulder and upper arm level, left arm, initial encounter; I10 Essential (primary) hypertension; J44.9 Chronic obstructive pulmonary disease, unspecified; M10.9 Gout, unspecified; R56.9 Unspecified convulsions; F17.200 Nicotine dependence, unspecified, uncomplicated; W10.9XXA Fall (on) (from) unspecified stairs and steps, initial encounter
CPT/HCPCS: 99283

== ENCOUNTER 2017-09-15 16:14 | Emergency (ER) | payer OTHER ==
[~2017-09-15 16:14] MED LIST changes: -IBUP-232 PO; -POTA1TAB4 PO; +TRAM50TA PO
[2017-09-15 16:21] VITALS: BP 132/80; PULSE 96; RESP 16; TEMP 98.4; O2SAT 95
--- NOTE | 2017-09-15 17:18 | PD ---
Physical Exam Time Seen by Provider: 17:15 Narrative 57-year-old male with complaint of continued chronic back pain. Was seen 2 weeks ago but was not given pain medications and is still having pain. Denies fever, vomiting. Patient seen in triage. Vital signs reviewed. Patient awaiting bed placement. Data Data Last Documented VS Vital Signs Date Time Temp Pulse Resp B/P (MAP) Pulse Ox O2 Delivery O2 Flow Rate FiO2 09/15/17 16:21 98.4 96 16 132/80 (97) 95 MDM Supervised Visit with NIYA: Temitope Saavedra Sep 15, 2017 17:18
== END 2017-09-15 19:51 | disposition left against medical advice (07) ==
LOC: NEDAMB 16:14
DX: G89.29 Other chronic pain (principal); M54.9 Dorsalgia, unspecified
CPT/HCPCS: 99281

== ENCOUNTER 2017-11-28 21:04 | Emergency (ER) | payer OTHER ==
[~2017-11-28] VITALS: Ht 172.7 cm; Wt 73.0 kg
[2017-11-28 21:06] VITALS: BP_SYST 122; BP_DIAS 7; BP_DIAS 73; PULSE 84; RESP 14; O2SAT 89
[2017-11-28 21:07] VITALS: O2SAT 96
[2017-11-29 02:20] VITALS: BP 121/58; PULSE 78; RESP 16; O2SAT 88
[2017-11-29 02:30] VITALS: BP 127/56; PULSE 87; RESP 15; O2SAT 96
--- NOTE | 2017-11-29 03:12 | PD ---
HPI Chief Complaint: Alcohol/Drug Intoxication Time Seen by Provider: 02:15 Travel History International Travel<30 days: No ([place]) Contact w/Intl Traveler<30days: No (uto) Traveled to known affect area: No (uto ) History of Present Illness HPI 57-year-old white male alcoholic presents to emergency department under [place] act due to alcohol intoxication. Patient was found intoxicated on the ground and unable to care for himself. The patient is intoxicated here and a meaningful history is not obtainable. Review the medical record indicates prior history of the same. There is no evidence of trauma. He is handling his secretions well. PFSH Past Medical History Cardiovascular Problems: Yes (HTN) COPD: Yes Diminished Hearing: No Gout: Yes Hypertension: Yes Respiratory: Yes (copd) Seizures: Yes Past Surgical History Surgical History: Unable to Obtain Other Surgery: Yes (SKIN GRAFT ) Social History Alcohol Use: Yes (5-8 beers per day) Tobacco Use: Yes (one pack per day) Substance Use: No (pt denies using any other drugs ) Allergies-Medications (Allergen,Severity, Reaction): Coded Allergies: No Known Allergies (Verified Adverse Reaction, Unknown, 11/28/17) Reported Meds & Prescriptions Reported Meds & Active Scripts Active Tramadol (Tramadol HCl) 50 Mg Tab 100 Mg PO Q6H PRN Review of Systems ROS Limitations: Intoxication Physical Exam Narrative GENERAL: Well-nourished, well-developed patient. No evidence trauma. Smells of EtOH appears heavily intoxicated. 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 HEAD: Normocephalic and atraumatic. EYES: No scleral icterus. No injection or drainage. ENT: No nasal drainage noted. Mucous membranes pink. Airway patent. NECK: Supple, trachea midline. Moves head freely without obvious discomfort. CARDIOVASCULAR: Regular rate and rhythm without murmurs, gallops, or rubs. RESPIRATORY: Breath sounds equal bilaterally. No accessory muscle use. Scattered expiratory wheezes GASTROINTESTINAL: Abdomen soft, non-tender, nondistended. EXTREMITIES: No cyanosis or edema. BACK: Nontender without obvious deformity. No CVA tenderness. NEURO: Patient is alert and oriented to person. no sensorimotor deficits. Nonfocal. Slurred speech. PSYCH: No delusions. No auditory or visual hallucinations. Data Data Last Documented VS Vital Signs Date Time Temp Pulse Resp B/P (MAP) Pulse Ox O2 Delivery O2 Flow Rate FiO2 11/29/17 02:30 87 15 127/56 (79) 96 Nasal Cannula 2.00 MDM Medical Decision Making Medical Screen Exam Complete: Yes Emergency Medical Condition: Yes Medical Record Reviewed: Yes Differential Diagnosis Differential diagnoses: Alcohol intoxication, substance abuse, electrolyte abnormality, malingering Narrative Course The patient is intoxicated. There is no evidence of any trauma. He is handling his secretions. His vital signs of an stable. The patient will be allowed to sober up. In the ER. Once the patient exhibits sobriety the patient may be discharged safely. This is alcohol intoxication Diagnosis Primary Impression: Alcohol intoxication Qualified Codes: F10.920 - Alcohol use, unspecified with intoxication, uncomplicated Patient Instructions: General Instructions Additional Instructions: Rest. Increase fluids. Avoid alcohol. Avoid illegal substances. Follow-up with [facility]aj[facility] for detox. Do not operate a car or any heavy machinery under the influence of alcohol or drugs. Follow-up with a medical doctor this week. Return to the ER for emergencies Med/Other Pt SpecificInfo: No Meds Exist/No RX given Disposition: 01 DISCHARGE HOME Condition: Stable Keenan Bliss Nov 29, 2017 03:12
[2017-11-29 04:38] VITALS: O2SAT 92
== END 2017-11-29 06:39 | disposition home or self-care (01) ==
LOC: NEPD 21:04
DX: F10.129 Alcohol abuse with intoxication, unspecified (principal); F17.200 Nicotine dependence, unspecified, uncomplicated
CPT/HCPCS: 99283

== ENCOUNTER 2017-12-15 18:05 | Inpatient (IN) | payer OTHER ==
[~2017-12-15] VITALS: Ht 175.3 cm; Wt 73.0 kg
[2017-12-15] MEDS ORDERED: IOHEXOL 350 MG/ML 10 ML VIAL (for RAD DIAG) IVCONTRAST ONE (18:06)
[2017-12-15 18:13] VITALS: BP 145/84; PULSE 111; RESP 20; TEMP 98.8; O2SAT 97
[2017-12-15] MEDS ORDERED: SODIUM CHLORIDE 0.9% FLUSH 10 ML FLUSH IV FLUSH PRN (19:45)
[2017-12-15] MEDS ORDERED: ONDANSETRON HCL 4 MG/2 ML VIAL IVP ONE (19:45)
[2017-12-15] MEDS ORDERED: MORPHINE SULFATE 4 MG/ML INJ IV PUSH ONE (19:45)
--- NOTE | 2017-12-15 19:50 | PD ---
HPI Chief Complaint: Abdominal Pain Time Seen by Provider: 19:44 Travel History International Travel<30 days: No Contact w/Intl Traveler<30days: No Traveled to known affect area: No History of Present Illness HPI 57-year-old male presents to the emergency department for complaint of abdominal pain left upper quadrant sharp in nature intermittent with abdominal distention. Patient states symptoms have developed over the past 2 days and worsened today. Patient's had subjective fever and chills. Patient's had cough productive of yellow-green sputum. Patient states she's had cough and flulike symptoms for 2 weeks. Patient has had no chest pain. Patient denies hemoptysis or hematemesis. Patient has had yellow-green sputum production. Patient also complains of watery diarrhea without melena or hematochezia. Patient states he has not taken any recent antibiotic. Patient admits to drinking beer daily. Last period was yesterday. Patient does not report any alcohol withdrawal seizures. Patient states that he does smoke cigarettes. Patient rates his pain 9/10 in intensity. Patient has taken aspirin 2 days ago for pain without relief. Patient denies other concerns or complaints. Patient has history of COPD tobaccoism alcoholism seizure hepatitis B and hypertension. PENDING SALE TO [facility] Past Medical History Narrative Medical Hypertension seizure COPD hepatitis B tobacco use alcohol use; nursing notes reviewed; nursing notes reviewed Cardiovascular Problems: Yes (HTN) COPD: Yes Diminished Hearing: No Gout: Yes Hypertension: Yes Medical other: Yes ("HEP B") Respiratory: Yes Seizures: Yes Past Surgical History Other Surgery: Yes (SKIN GRAFT ) Social History Alcohol Use: Yes ("5-8 beers per day") Tobacco Use: Yes ("1 PPD") Substance Use: No Allergies-Medications (Allergen,Severity, Reaction): Coded Allergies: No Known Allergies (Verified Adverse Reaction, Unknown, 12/15/17) Reported Meds & Prescriptions Reported Meds & Active Scripts Active No Active Prescriptions or Reported Medications Review of Systems Except as stated in HPI: all other systems reviewed are Neg Physical Exam Narrative GENERAL: Well-developed well-nourished female in no acute distress no respiratory 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 HEAD: Normocephalic. EYES: No scleral icterus. No injection or drainage. NECK: Supple, trachea midline. No JVD or lymphadenopathy. CARDIOVASCULAR: Increased Regular rate and rhythm without murmurs, gallops, or rubs. RESPIRATORY: Breath sounds equal bilaterally few end expiratory wheezes. No accessory muscle use. GASTROINTESTINAL: Abdomen soft, left upper quadrant tenderness to direct palpation without guarding or rebound, distended with perceptible fluid wave. MUSCULOSKELETAL: No cyanosis, bilateral lower leg pretibial edema. BACK: Nontender without obvious deformity. No CVA tenderness. Data Data Last Documented VS Vital Signs Date Time Temp Pulse Resp B/P (MAP) Pulse Ox O2 Delivery O2 Flow Rate FiO2 12/15/17 20:14 107 18 146/78 (100) 96 Room Air 12/15/17 18:13 98.8 Orders Orders Complete Blood Count With Diff (12/15/17 19:44) Comprehensive Metabolic Panel (12/15/17 19:44) Lipase (12/15/17 19:44) Lactic Acid (12/15/17 19:44) Prothrombin Time / Inr (Pt) (12/15/17 19:44) Act Partial Throm Time (Ptt) (12/15/17 19:44) Urinalysis - C+S If Indicated (12/15/17 19:44) Ct Abd/Pel W Iv Contrast(Rout) (12/15/17 19:44) Iv Access Insert/Monitor (12/15/17 19:44) Ecg Monitoring (12/15/17 19:44) Oximetry (12/15/17 19:44) Morphine Inj (Morphine Inj) (12/15/17 19:45) Ondansetron Inj (Zofran Inj) (12/15/17 19:45) Sodium Chloride 0.9% Flush (Ns Flush) (12/15/17 19:45) Electrocardiogram (12/15/17 19:44) Chest, Single Ap (12/15/17 19:44) Magnesium (Mg) (12/15/17 19:44) Alcohol (Ethanol) (12/15/17 19:44) Troponin I (12/15/17 19:44) Iohexol 350 Inj (Omnipaque 350 Inj) (12/15/17 18:06) Labs Laboratory Tests Test 12/15/17 19:55 12/15/17 22:00 White Blood Count 7.9 TH/MM3 Red Blood Count 3.20 MIL/MM3 Hemoglobin 11.7 GM/DL Hematocrit 33.6 % Mean Corpuscular Volume 105.2 FL Mean Corpuscular Hemoglobin 36.7 PG Mean Corpuscular Hemoglobin Concent 34.9 % Red Cell Distribution Width 13.7 % Platelet Count 98 TH/MM3 Mean Platelet Volume 9.5 FL Neutrophils (%) (Auto) 76.4 % Lymphocytes (%) (Auto) 12.9 % Monocytes (%) (Auto) 9.2 % Eosinophils (%) (Auto) 0.3 % Basophils (%) (Auto) 1.2 % Neutrophils # (Auto) 6.0 TH/MM3 Lymphocytes # (Auto) 1.0 TH/MM3 Monocytes # (Auto) 0.7 TH/MM3 Eosinophils # (Auto) 0.0 TH/MM3 Basophils # (Auto) 0.1 TH/MM3 CBC Comment AUTO DIFF Differential Comment AUTO DIFF CONFIRMED Platelet Estimate LOW Platelet Morphology Comment NORMAL Prothrombin Time 16.4 SEC Prothromb Time International Ratio 1.6 RATIO Activated Partial Thromboplast Time 32.2 SEC Blood Urea Nitrogen 4 MG/DL Creatinine 0.63 MG/DL Random Glucose 104 MG/DL Total Protein 7.6 GM/DL Albumin 1.7 GM/DL Calcium Level 7.6 MG/DL Magnesium Level 1.0 MG/DL Alkaline Phosphatase 162 U/L Aspartate Amino Transf (AST/SGOT) 215 U/L Alanine Aminotransferase (ALT/SGPT) 64 U/L Total Bilirubin 2.5 MG/DL Sodium Level 135 MEQ/L Potassium Level 3.3 MEQ/L Chloride Level 99 MEQ/L Carbon Dioxide Level 28.0 MEQ/L Anion Gap 8 MEQ/L Estimat Glomerular Filtration Rate 132 ML/MIN Lactic Acid Level 2.8 mmol/L Troponin I 0.07 NG/ML Lipase 476 U/L Ethyl Alcohol Level 74 MG/DL Urine Color DARK-BROWN Urine Turbidity HAZY Urine pH 6.0 Urine Specific [place] 1.021 Urine Protein TRACE mg/dL Urine Glucose (UA) NEG mg/dL Urine Ketones NEG mg/dL Urine Occult Blood NEG Urine Nitrite NEG Urine Bilirubin MOD Urine Urobilinogen GREATER THAN 12.0 MG/DL Urine Leukocyte Esterase NEG Urine RBC 4 /hpf Urine WBC 1 /hpf Urine Amorphous Sediment RARE Urine Mucus MANY /lpf Microscopic Urinalysis Comment CULT NOT INDICATED MDM Medical Decision Making Medical Screen Exam Complete: Yes Emergency Medical Condition: Yes Medical Record Reviewed: Yes Interpretation(s) EKG: Sinus tachycardia rate [address] depression anterolaterally no acute ST elevation or injury pattern or ectopy noted Differential Diagnosis Pneumonia, COPD, ACS, [place], pancreatitis, ascites, peritonitis, liver failure HEPATITIS, electronic disturbance, CHF Narrative Course IV access obtained specimens collected and sent for resulting patient administered Zofran 4 mg IV morphine sulfate 2 mg IV patient placed on cardiac monitors continues pulse oximetry Scripts No Active Prescriptions or Reported Meds Francesca Angel MD Dec 15, 2017 19:50
--- NOTE | 2017-12-15 20:04 | RADRPT ---
EXAM DATE/TIME: 12/15/2017 19:53 [facility] COMPARISON: No previous studies available for comparison. INDICATIONS : Cough, shortness of breath and abdominal pain. MEDICAL HISTORY : Hypertension. SURGICAL HISTORY : None. ENCOUNTER: Initial ACUITY: 1 day PAIN SCORE: 4/10 LOCATION: Bilateral lower chest FINDINGS: A single view of the chest demonstrates the lungs to be symmetrically aerated without evidence of mas s, infiltrate or effusion. The cardiomediastinal contours are unremarkable. Osseous structures are intact. CONCLUSION: No evidence of acute cardiopulmonary disease. Cornel Cortez MD on December 15, 2017 at 20:01 Board Certified Radiologist. This report was verified electronically.
[2017-12-15 20:14] VITALS: BP 146/78; PULSE 107; RESP 18; O2SAT 96
[2017-12-15 20:30] LABS: BASOPHIL # 0.1 TH/MM3 (0-0.2); BASOPHIL % 1.2 % (0.0-2.0); EOSINOPHIL % 0.3 % (0.0-4.0); HEMATOCRIT 33.6 % (39.0-51.0); HEMOGLOBIN 11.7 GM/DL (13.0-17.0); LYMPH % 12.9 % (9.0-44.0); MEAN CELL VOLUME 105.2 FL (80.0-100.0); MEAN CORPUSCULAR HEMOGLOBIN 36.7 PG (27.0-34.0); MEAN CORPUSCULAR HGB CONC 34.9 % (32.0-36.0); MEAN PLATELET VOLUME 9.5 FL (7.0-11.0); MONO % 9.2 % (0.0-8.0); MONOCYTE # 0.7 TH/MM3 (0-0.9); NEUT % 76.4 % (16.0-70.0); PLATELET COUNT 98 TH/MM3 (150-450); RED CELL DISTRIBUTION WIDTH 13.7 % (11.6-17.2); WHITE BLOOD COUNT 7.9 TH/MM3 (4.0-11.0)
[2017-12-15 20:44] LABS: INTERNATIONAL NORMALIZED RATIO 1.6 RATIO; PROTHROMBIN TIME - PATIENT 16.4 SEC (9.8-11.6)
[2017-12-15 20:54] LABS: ALBUMIN 1.7 GM/DL (3.4-5.0); AST (GOT) 215 U/L (15-37); BLOOD UREA NITROGEN 4 MG/DL (7-18); CALCIUM 7.6 MG/DL (8.5-10.1); CHLORIDE 99 MEQ/L (98-107); CREATININE 0.63 MG/DL (0.60-1.30); GLOMERULAR FILTRATION RATE 132 ML/MIN (>89); GLUCOSE,RANDOM 104 MG/DL (74-106); LIPASE 476 U/L (73-393); SODIUM (NA) 135 MEQ/L (136-145)
[2017-12-15 20:55] LABS: ALT (GPT) 64 U/L (12-78)
[2017-12-15 20:59] LABS: ALKALINE PHOSPHATASE 162 U/L (45-117); TOTAL BILIRUBIN ADULT 2.5 MG/DL (0.2-1.0); TOTAL PROTEIN 7.6 GM/DL (6.4-8.2); TROPONIN I 0.07 NG/ML (0.02-0.05)
[2017-12-15 22:42] LABS: AMORPHOUS SEDIMENT, URINE RARE; BILIRUBIN, URINE MOD (NEG); BLOOD, URINE NEG (NEG); GLUCOSE,URINE NEG (NEG); KETONE, URINE NEG (NEG); MUCUS URINE MANY /lpf (OCC); NITRITE,URINE NEG (NEG); URINE LEUKOCYTE ESTERASE NEG (NEG)
[2017-12-15 22:44] LABS: URINE COLOR DARK-BROWN (YELLW/STRAW)
[2017-12-15 23:10] VITALS: O2SAT 96
[2017-12-15] MEDS ORDERED: RESP: ALBUTEROL 2.5 MG/IPRATROPIUM 0.5 MG NEB (SCH) NEB ONE (23:15)
[2017-12-15] MEDS ORDERED: NITROGLYCERIN 2% OINT 1 GM PACKET TOPICAL ONE (23:15)
--- NOTE | 2017-12-15 23:15 | RADRPT ---
EXAM DATE/TIME: 12/15/2017 22:42 [facility] COMPARISON: No previous studies available for comparison. INDICATIONS : Abdomen pain with distention. IV CONTRAST: 92 cc Omnipaque 350 (iohexol) IV ORAL CONTRAST: No oral contrast ingested. RADIATION DOSE: 12.36 CTDIvol (mGy) MEDICAL HISTORY : Cardiovascular disease. Hypertension. Seizures. SURGICAL HISTORY : None. ENCOUNTER: Initial ACUITY: 2 weeks PAIN SCALE: 5/10 LOCATION: Bilateral abdomen TECHNIQUE: Volumetric scanning of the abdomen and pelvis was performed. Using automated exposure control and ad justment of the mA and/or kV according to patient size, radiation dose was kept as low as reasonably achievable to obtain optimal diagnostic quality images. DICOM format image data is available electro nically for review and comparison. FINDINGS: LOWER LUNGS: The visualized lower lungs are clear. LIVER: There is diffuse decreased density throughout the liver. There is minimal nodularity of the liver mar gin. There is a recannulized periumbilical vein consistent with portal hypertension. There are varice s in the upper abdomen. SPLEEN: Normal size without lesion. PANCREAS: Within normal limits. KIDNEYS: There are two tiny 2 mm nonobstructing stones in the superior left collecting system. The kidneys are otherwise unremarkable. No hydronephrosis is seen. ADRENAL GLANDS: Within normal limits. VASCULAR: There is no aortic aneurysm. BOWEL/MESENTERY: There is a moderate amount of ascites seen. The bowel is unremarkable. ABDOMINAL WALL: Within normal limits. RETROPERITONEUM: There is no lymphadenopathy. BLADDER: The bladder is diffusely thickened only minimally distended. The thickening is likely secondary to la ck of distention. REPRODUCTIVE: Prostatic calcifications are present. INGUINAL: There is no lymphadenopathy or hernia. MUSCULOSKELETAL: There is degenerative change of the lower lumbar spine. CONCLUSION: 1. Cirrhotic liver with moderate ascites. There is a recannulized paraumbilical vein consistent with portal hypertension. There are varices in the upper abdomen. 2. Tiny nonobstructing left renal stones. Cornel Cuellar MD on December 15, 2017 at 23:07 Board Certified Radiologist. This report was verified electronically.
[2017-12-15 23:51] VITALS: BP 132/64; PULSE 120; RESP 18; O2SAT 95
[2017-12-16] VITALS (8 sets, daily range): BP systolic 98–126; BP diastolic 66–89; PULSE 82–114; RESP 14–20; TEMP 97.8–99.6; O2SAT 90–99
[2017-12-16] MEDS ORDERED: CALCIUM CARBONATE 500 MG CHEWABLE TAB CHEW ONE
[2017-12-16] MEDS ORDERED: FLUMAZENIL 0.5 MG/5 ML VIAL IV PUSH PRN
[2017-12-16] MEDS ORDERED: LORazepam 2 MG TAB PO PRN
[2017-12-16] MEDS ORDERED: PIPERACIL-TAZO 4.5 GM PREMIX 100 ML IV ONE
[2017-12-16] MEDS ORDERED: VANCOMYCIN INJ 1,000 MG in SODIUM CHLOR 0.9% 250 ML INJ 250 ML IV ONE ×2
[2017-12-16] MEDS ORDERED: LORazepam 1 MG TAB PO PRN
[2017-12-16] MEDS ORDERED: SODIUM CHLOR 0.9% 1000 ML INJ 1,000 ML IV ONE
[2017-12-16] MEDS ORDERED: POTASSIUM CHLORIDE 20 MEQ CONTROLLED RELEASE TAB PO ONE
[2017-12-16] MEDS ORDERED: LORazepam 2 MG/ML VIAL IV PUSH PRN ×4
[2017-12-16] MEDS ORDERED: MORPHINE SULFATE 2 MG/ML INJ IV PUSH ONE
[2017-12-16] MEDS ORDERED: BISACODYL 10 MG SUPP RECTAL PRN (00:45)
[2017-12-16] MEDS ORDERED: SENNOSIDES 8.6 MG TAB PO PRN (00:45)
[2017-12-16] MEDS ORDERED: LACTULOSE SYRUP 20 GM/30 ML CUP PO PRN (00:45)
[2017-12-16] MEDS ORDERED: SODIUM CHLORIDE 0.9% FLUSH 10 ML FLUSH IV FLUSH PRN (00:45)
[2017-12-16] MEDS ORDERED: MAGNESIUM HYDROXIDE SUSP 30 ML CUP PO PRN (00:45)
[2017-12-16] MEDS ORDERED: ACETAMINOPHEN 325 MG TAB PO PRN (00:45)
[2017-12-16] MEDS ORDERED: ONDANSETRON HCL 4 MG/2 ML VIAL IVP PRN (00:45)
[2017-12-16] MEDS: MAGNESIUM SULFATE 1 GM PREMIX 100 ML IV SCH ×2 (01:19→02:35)
--- NOTE | 2017-12-16 03:01 | HHI.HP ---
HPI Service [facility] Hospitalists Primary Care Physician No Primary Care Physician Admission Diagnosis abdominal pain; alcohol hepatitis; hyperlipasemia; elevated troponin Diagnoses: (1) Cirrhosis Diagnosis: Principal (2) Ascites Diagnosis: Principal (3) Elevated troponin Diagnosis: Principal (4) Pancreatitis Diagnosis: Principal (5) Lactic acidosis Diagnosis: Principal (6) Coagulopathy Diagnosis: Principal (7) Alcohol abuse Diagnosis: Principal Travel History International Travel<30 Days: No Contact w/Intl Traveler <30 Da: No Traveled to Known Affected Are: No History of Present Illness This is a 67-year-old male with a PMH of HTN, Hepatitis B, Alcohol Abuse, Tobacco Abuse and COPD who presented to the ER w/ complaints of abdominal pain. States symptoms started 2 days ago, localized to LUQ, severe 8/10, intermittent, sharp and non-radiating. Associated w/ nausea, no vomiting and few episodes of diarrhea. Also reports progressive abdominal distention w/ subjective fever/chills. Denies chest pain or sick contacts. Admits to drinking 8-10 beers/day, has been drinking less due to above symptoms. On arrival, BP 145/84, HR 111, O2 sat 97% on RA, Afebrile. Hemoglobin 11.7. Platelets 98, previously 205 on 06/25/17. Lactic Acid 2.8. LFTs decreased in comparison to previous labs. Troponin 0.07. Lipase 476. INR 1.6. UA negative. Alcohol 74. CXR with no acute findings. CT Abd/Pelvis w/ cirrhotic liver with moderate ascites, recannulized paraumbilical vein consistent with portal hypertension, varices and upper abdomen. On exam, pt w/ ascites, no previous h/o paracentesis. Review of Systems Except as stated in HPI: all other systems reviewed are Neg ROS: 14 point review of systems otherwise negative. Past Family Social History Past Medical History PMH: HTN, Hepatitis B, Alcohol Abuse, Tobacco Abuse and COPD Past Surgical History PAST SURGICAL HISTORY: Skin graft Allergies: Coded Allergies: No Known Allergies (Verified Adverse Reaction, Unknown, 12/15/17) Family History PAST FAMILY HISTORY: Reviewed. No h/o DM or CAD Social History PAST SOCIAL HISTORY: Drinks 8-10 beers daily. Smokes 1ppd. Negative for drugs. Physical Exam Vital Signs Vital Signs Date Time Temp Pulse Resp B/P (MAP) Pulse Ox O2 Delivery O2 Flow Rate FiO2 12/16/17 00:51 114 20 116/68 (84) 95 Room Air 12/15/17 23:51 120 18 132/64 (86) 95 Room Air 12/15/17 23:10 96 21 12/15/17 20:14 107 18 146/78 (100) 96 Room Air 12/15/17 18:13 98.8 111 20 145/84 (104) 97 Physical Exam PE: GENERAL: Middle-aged male in no acute distress. HEENT: PERRLA, EOMI. No scleral icterus or conjunctival pallor. No lid lag or facial droop. CARDIOVASCULAR: Regular rate and rhythm. No obvious murmurs to auscultation. No chest tenderness to palpation. RESPIRATORY: No obvious rhonchi or wheezing. Clear to auscultation. Breath sounds equal bilaterally. GASTROINTESTINAL: Abdomen soft, non-tender, distended, positive ascites. BS normal. MUSCULOSKELETAL: Extremities without clubbing, cyanosis, or edema. No obvious deformities. NEUROLOGICAL: Awake, alert and oriented x4. No focal neurologic deficits. Moving both upper and lower extremities spontaneously. Laboratory Laboratory Tests Test 12/15/17 19:55 12/15/17 22:00 White Blood Count 7.9 Red Blood Count 3.20 Hemoglobin 11.7 Hematocrit 33.6 Mean Corpuscular Volume 105.2 Mean Corpuscular Hemoglobin 36.7 Mean Corpuscular Hemoglobin Concent 34.9 Red Cell Distribution Width 13.7 Platelet Count 98 Mean Platelet Volume 9.5 Neutrophils (%) (Auto) 76.4 Lymphocytes (%) (Auto) 12.9 Monocytes (%) (Auto) 9.2 Eosinophils (%) (Auto) 0.3 Basophils (%) (Auto) 1.2 Neutrophils # (Auto) 6.0 Lymphocytes # (Auto) 1.0 Monocytes # (Auto) 0.7 Eosinophils # (Auto) 0.0 Basophils # (Auto) 0.1 CBC Comment AUTO DIFF Differential Comment AUTO DIFF CONFIRMED Platelet Estimate LOW Platelet Morphology Comment NORMAL Prothrombin Time 16.4 Prothromb Time International Ratio 1.6 Activated Partial Thromboplast Time 32.2 Blood Urea Nitrogen 4 Creatinine 0.63 Random Glucose 104 Total Protein 7.6 Albumin 1.7 Calcium Level 7.6 Magnesium Level 1.0 Alkaline Phosphatase 162 Aspartate Amino Transf (AST/SGOT) 215 Alanine Aminotransferase (ALT/SGPT) 64 Total Bilirubin 2.5 Sodium Level 135 Potassium Level 3.3 Chloride Level 99 Carbon Dioxide Level 28.0 Anion Gap 8 Estimat Glomerular Filtration Rate 132 Lactic Acid Level 2.8 Troponin I 0.07 Lipase 476 Ethyl Alcohol Level 74 Urine Color DARK-BROWN Urine Turbidity HAZY Urine pH 6.0 Urine Specific [place] 1.021 Urine Protein TRACE Urine Glucose (UA) NEG Urine Ketones NEG Urine Occult Blood NEG Urine Nitrite NEG Urine Bilirubin MOD Urine Urobilinogen GREATER THAN 12.0 Urine Leukocyte Esterase NEG Urine RBC 4 Urine WBC 1 Urine Amorphous Sediment RARE Urine Mucus MANY Microscopic Urinalysis Comment CULT NOT INDICATED Result Diagram: 12/15/17195412/15/171954 Jasoni VTE Risk Assessment Caprini VTE Risk Assessment: No/Low Risk (score <= 1) VTE Pharm Contraindication: High risk for bleeding Caprini Risk Assessment Model Point Value = 1 Point Value = 2 Point Value = 3 Point Value = 5 Age 41-60 Minor surgery BMI > 25 kg/m2 Swollen legs Varicose veins or History of unexplained or recurrent spontaneous Oral contraceptives or hormone replacement Sepsis (< 1 month) Serious lung disease, including pneumonia (< 1 month) Abnormal pulmonary function Acute myocardial infarction Congestive heart failure (< 1 month) History of inflammatory bowel disease Medical patient at bed rest Age 61-74 Arthroscopic surgery Major open surgery (> 45 min) Laparoscopic surgery (> 45 min) Malignancy Confined to bed (> 72 hours) Immobilizing plaster cast Central venous access Age >= 75 History of VTE Family history of VTE Factor V Leiden Prothrombin 28160A Lupus anticoagulant Anticardiolipin antibodies Elevated serum homocysteine Heparin-induced thrombocytopenia Other congenital or acquired thrombophilia Stroke (< 1 month) Elective arthroplasty Hip, pelvis, or leg fracture Acute spinal cord injury (< 1 month) Prophylaxis Regimen Total Risk Factor Score Risk Level Prophylaxis Regimen 0-1 Low Early ambulation 2 Moderate Order ONE of the following: *Sequential Compression Device (SCD) *Heparin 5000 units SQ BID 3-4 Higher Order ONE of the following medications: *Heparin 5000 units SQ TID *Enoxaparin/Lovenox 40 mg SQ daily (WT < 150 kg, CrCl > 30 mL/min) *Enoxaparin/Lovenox 30 mg SQ daily (WT < 150 kg, CrCl > 10-29 mL/min) *Enoxaparin/Lovenox 30 mg SQ BID (WT < 150 kg, CrCl > 30 mL/min) AND/OR *Sequential Compression Device (SCD) 5 or more Highest Order ONE of the following medications: *Heparin 5000 units SQ TID (Preferred with Epidurals) *Enoxaparin/Lovenox 40 mg SQ daily (WT < 150 kg, CrCl > 30 mL/min) *Enoxaparin/Lovenox 30 mg SQ daily (WT < 150 kg, CrCl > 10-29 mL/min) *Enoxaparin/Lovenox 30 mg SQ BID (WT < 150 kg, CrCl > 30 mL/min) AND *Sequential Compression Device (SCD) Assessment and Plan Problem List: (1) Cirrhosis ICD Code: K74.60 - Unspecified cirrhosis of liver (2) Ascites ICD Code: R18.8 - Other ascites (3) Coagulopathy ICD Code: D68.9 - Coagulation defect, unspecified (4) Lactic acidosis ICD Code: E87.2 - Acidosis (5) Pancreatitis ICD Code: K85.90 - Acute pancreatitis without necrosis or infection, unspecified (6) Elevated troponin ICD Code: R74.8 - Abnormal levels of other serum enzymes (7) Alcohol abuse ICD Code: F10.10 - Alcohol abuse, uncomplicated Assessment and Plan A/P: 1. Cirrhosis: h/o Hepatitis, LFTs improved in comparison to previous labs from 06/25/17, CT Abd/Pelvis w/ Cirrhosis/Portal HTN, images reviewed by me. Start Propranolol, Aldactone/Lasix. Monitor I/O. 2. Ascites: New Onset. Progressive abdominal distention, moderate ascites on CT Abd/Pelvis. Consult IR for Diagnostic/Therapeutic Paracentesis. Check Fluid , Gram Stain, LDH, Protein, Cytology. Consult GI for further evaluation as needed. 3. Coagulopathy: secondary to liver dysfunction. INR 1.6, Platelets 98, no active bleeding at this time, monitor closely especially in light of varices seen on CT Abd/Pelvis. High risk for bleeding 4. Lactic Acidosis: Lactate 2.8, no obvious source of infection, afebrile, no leukocytosis, U/a negative for UTI. CXR w/ no acute findings, images reviewed by me. Likely secondary to dehydration/alcohol abuse. IVF-caution w/ overload from cirrhosis. Repeat Lactate 5. Pancreatitis: Mild. Lipase 476. IVF, analgesics/antiemetics as needed. Pepcid IV 6. Elevated Trop: Trop 0.07, no c/o chest pain, EKG w no acute ischemia. Check serial cardiac enzymes for trend. Telemetry. Consult Cardiology as needed. High risk for bleeding, hold ASA/anticoagulation 7. Alcohol Abuse: Daily, heavy, high risk for withdrawal. CIWA, Seizure Precautions, MVT/Thiamine/Folate 8. DVT Prophylaxis: Pharmacologic contraindication secondary to coagulopathy/ elevated INR. 9. Social work for d/c planning as needed. 10. Labs/records/imaging reviewed by me, case discussed at length w/ ER physician. Physician Certification 2 Midnight Certification Type: Admission for Inpatient Services Order for Inpatient Services The services are ordered in accordance with Medicare regulations or non- Medicare payer requirements, as applicable. In the case of services not specified as inpatient-only, they are appropriately provided as inpatient services in accordance with the 2-midnight benchmark. Estimated LOS (days): 2 days is the estimated time the patient will need to remain in the hospital, assuming treatment plan goals are met and no additional complications. Post-Hospital Plan: Not yet determined Lanie Araiza MD Dec 16, 2017 03:01
[2017-12-16 06:47] LABS: AUTOMATED NEUTROPHIL # 4.7 TH/MM3 (1.8-7.7); BASOPHIL # 0.1 TH/MM3 (0-0.2); BASOPHIL % 1.3 % (0.0-2.0); EOSINOPHIL # 0.1 TH/MM3 (0-0.4); EOSINOPHIL % 1.7 % (0.0-4.0); HEMATOCRIT 30.9 % (39.0-51.0); HEMOGLOBIN 10.8 GM/DL (13.0-17.0); LYMPH % 16.8 % (9.0-44.0); LYMPHOCYTE # 1.2 TH/MM3 (1.0-4.8); MEAN CELL VOLUME 106.8 FL (80.0-100.0); MEAN CORPUSCULAR HEMOGLOBIN 37.2 PG (27.0-34.0); MEAN CORPUSCULAR HGB CONC 34.8 % (32.0-36.0); MONO % 12.7 % (0.0-8.0); MONOCYTE # 0.9 TH/MM3 (0-0.9); NEUT % 67.5 % (16.0-70.0); PLATELET COUNT 95 TH/MM3 (150-450); RED BLOOD COUNT 2.89 MIL/MM3 (4.50-5.90); RED CELL DISTRIBUTION WIDTH 14.1 % (11.6-17.2)
[2017-12-16 06:51] LABS: INTERNATIONAL NORMALIZED RATIO 1.6 RATIO; PROTHROMBIN TIME - PATIENT 16.6 SEC (9.8-11.6)
[2017-12-16 06:59] LABS: ALBUMIN 1.5 GM/DL (3.4-5.0); BICARBONATE 27.9 MEQ/L (21.0-32.0); CALCIUM 7.1 MG/DL (8.5-10.1); CREATININE 0.59 MG/DL (0.60-1.30); TOTAL BILIRUBIN ADULT 3.8 MG/DL (0.2-1.0); TOTAL PROTEIN 7.1 GM/DL (6.4-8.2)
[2017-12-16 07:20] LABS: CALCIUM-PROTEIN CORRECTED 7.1 MG/DL (8.5-10.1)
[2017-12-16] MEDS: SODIUM CHLORIDE 0.9% FLUSH 10 ML FLUSH IV FLUSH SCH ×2 (07:57→19:35)
[2017-12-16] MEDS ORDERED: FAMOTIDINE 20 MG/2 ML VIAL IV PUSH SCH (09:00)
[2017-12-16] MEDS: PROPRANOLOL HCL 10 MG TAB PO SCH ×2 (10:03→19:34)
[2017-12-16] MEDS: DOCUSATE SODIUM 50 MG/SENNA 8.6 MG TAB PO SCH ×2 (10:03→19:34)
[2017-12-16] MEDS: FUROSEMIDE 40 MG TAB PO SCH (10:04)
[2017-12-16 10:34] LABS: TOTAL PROTEIN,PERITONEAL FLUID 1.5 GM/DL
[2017-12-16 11:12] LABS: PERITONEAL HISTIOCYTES 13 %; PERITONEAL LYMPHS 44 %; PERITONEAL MESOTHELIAL 28 %; PERITONEAL POLYS(SEGS) 15 %; PERITONEAL RBC 100 /MM3 (0-0)
[2017-12-16] MEDS: SPIRONOLACTONE 50 MG TAB PO SCH (11:13)
--- NOTE | 2017-12-16 11:34 | RADRPT ---
EXAM DATE/TIME: 12/16/2017 08:35 [place] COMPARISON: No previous studies available for comparison. INDICATIONS : Ascites. MEDICAL HISTORY : Hypertension. Chronic obstructive pulmonary disease. Hepatitis B. Gout. SURGICAL HISTORY : Skin graft. ENCOUNTER: Initial ACUITY: 4 - 6 days PAIN SCORE: 10/10 LOCATION: Right lower quadrant FLUID: Total volume of 4000 cc of cloudy, yellow fluid was removed. Fluid was sent to lab for ordered studies. Post procedure scanning reveals no hematoma or other complication. TECHNIQUE: 1. Ultrasound guidance for abdominal paracentesis. 2. Paracentesis. The risks, benefits, and alternatives to ultrasound guided paracentesis were explained to the patient in detail including the risk of bleeding and infection. Written and verbal informed consent was obt ained. With the patient on the ultrasound table, ultrasound imaging was used to select the most appropriate approach for paracentesis. Overlying skin was prepped and draped in the usual sterile fashion and wi th a local anesthetic, a dermatotomy was made with an 11 blade scalpel. A 6 [place] [id number] ca theter was introduced into the peritoneal cavity and fluid was collected. The patient tolerated the procedure well and left the ultrasound suite in stable condition. CONCLUSION: Uncomplicated ultrasound guided paracentesis. Cornel Sol MD on December 16, 2017 at 11:31 Board Certified Radiologist. This report was verified electronically.
--- NOTE | 2017-12-16 15:03 | EKG ---
Date Performed: 12/15/2017 Time Performed: 20:08:12 PTAGE: 57 years EKG: SINUS TACHYCARDIA MODERATE ST DEPRESSION Since previous tracing, no significant change note d ABNORMAL ECG PREVIOUS TRACING : 06/25/2017 22.12 DOCTOR: Jurgen Warren Interpretating Date/Time 12/16/2017 15:02:01
[2017-12-16] MEDS ORDERED: MAGNESIUM SULFATE 1 GM PREMIX 100 ML IV ONE (16:00)
--- NOTE | 2017-12-16 16:06 | PD.RAD ---
Post US Procedure Prog Note Pre Procedure Diagnosis: (1) Ascites (2) Cirrhosis Post Procedure Diagnosis: (1) Ascites (2) Cirrhosis Procedure Date: Dec 16, 2017 Supervising Radiologist: Cornel Sol Estimated blood loss: none Anesthesia: Local Plan of Activity Patient to Unit: Other Patient Condition: Good See PACS Report for procedural detail/treatment Drainage Procedure Procedure 1 Imaging Guidance: Ultrasound Side: Right Procedure Type: Paracentesis Drainage: Suction Fluid Removal (CCs): 4000 Fluid Description: Clear, Yellow Plan return to ED once procedure complete. Patient should be monitored for at least 30 minutes post procedure. Cornel Sol MD Dec 16, 2017 16:06
--- NOTE | 2017-12-16 16:24 | HHI.PR ---
Subjective Remarks Follow-up on patient with ascites. Patient seen and examined. Patient continues to have complaints of left-sided abdominal pain. He is status post IR procedure. Denies any fever or chills. Denies any nausea or vomiting. She denies any chest pain or shortness of breath. Denies any alcohol withdrawal symptoms including visual/auditory hallucinations, increased anxiety or tremors. He reports 3 days of diarrhea prior to his admission but none since. He denies any recent antibiotic use. Patient does not follow-up with any physician regular. He states he's never had issues with abdominal swelling in the past. Objective Vitals Vital Signs Date Time Temp Pulse Resp B/P (MAP) Pulse Ox O2 Delivery O2 Flow Rate FiO2 12/16/17 12:00 98.2 82 18 112/66 (81) 92 12/16/17 10:02 96 14 113/67 (82) 95 12/16/17 08:42 98.4 90 20 126/78 (94) 90 12/16/17 03:16 111 18 117/89 (98) 95 Room Air 12/16/17 00:51 114 20 116/68 (84) 95 Room Air 12/15/17 23:51 120 18 132/64 (86) 95 Room Air 12/15/17 23:10 96 21 12/15/17 20:14 107 18 146/78 (100) 96 Room Air 12/15/17 18:13 98.8 111 20 145/84 (104) 97 I/O 12/15/17 12/15/17 12/15/17 12/16/17 12/16/17 12/16/17 07:00 15:00 23:00 07:00 15:00 23:00 Intake Total 1350 ml Balance 1350 ml Intake IV Total 1350 ml # Voids 1 Result Diagram: 12/16/17 0605 12/16/17 0605 Imaging Last Impressions Cyst Biopsy Asp-Paracentesis US 12/16/17 0000 Signed Impressions: Service Date/Time: Saturday, December 16, 2017 08:35 - CONCLUSION: Uncomplicated ultrasound guided paracentesis. Cornel Sol MD Chest X-Ray 12/15/17 194 Signed Impressions: Service Date/Time: Friday, December 15, 2017 19:53 - CONCLUSION: No evidence of acute cardiopulmonary disease. Cornel Cortez MD Abdomen/Pelvis CT 12/15/171943 Signed Impressions: Service Date/Time: Friday, December 15, 2017 22:42 - CONCLUSION: 1. Cirrhotic liver with moderate ascites. There is a recannulized paraumbilical vein consistent with portal hypertension. There are varices in the upper abdomen. 2. Tiny nonobstructing left renal stones. Cornel Cuellar MD Objective Remarks GENERAL: Well-nourished, well-developed male patient in NAD. Awake and alert. 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 No rash. HEAD: Normocephalic. Atraumatic. EYES: EOMI. No scleral icterus. No injection or drainage. ENT: No nasal bleeding or discharge. Mucous membranes pink and moist. NECK: Supple. Trachea midline. CARDIOVASCULAR: Regular rate and rhythm. S1, S2 noted. No murmur appreciated. RESPIRATORY: Nonlabored. Fair air entry with scattered expiratory wheezing. GASTROINTESTINAL: Abdomen soft, distended, tender to palpation over left upper and lower abdominal quadrants. s/p IR procedure with dressing C/D/I right abdomen. MUSCULOSKELETAL: 2+ pitting edema BLEs. NEUROLOGICAL: Awake and alert. Able to move all extremities spontaneously. No focal neurologic finding appreciated. Normal speech. PSYCHIATRIC: Appropriate mood and affect; insight and judgment normal. Procedures s/p IR paracentesis Medications and IVs Current Medications Medications (Trade) Dose Ordered Sig/Saleem Route Start Time Stop Time Status Last Admin (Romazicon Inj) 0.2 mg Q1M PRN IV PUSH 12/16/17 00:00 (Ativan) 1 mg Q4H PRN PO 12/16/17 00:00 12/16/17 03:17 (Ativan Inj) 1 mg Q4H PRN IV PUSH 12/16/17 00:00 (Ativan) 2 mg Q2H PRN PO 12/16/17 00:00 (Ativan Inj) 2 mg Q2H PRN IV PUSH 12/16/17 00:00 (Ativan Inj) 2 mg Q1H PRN IV PUSH 12/16/17 00:00 (Ativan Inj) 2 mg Q15M PRN IV PUSH 12/16/17 00:00 (Pepcid Inj) 20 mg Q12H IV PUSH 12/16/17 09:00 12/16/17 10:04 (NS Flush) 2 ml UNSCH PRN IV FLUSH 12/16/17 00:45 (NS Flush) 2 ml BID IV FLUSH 12/16/17 09:00 12/16/17 07:57 (Zofran Inj) 4 mg Q6H PRN IVP 12/16/17 00:45 (Tylenol) 650 mg Q6H PRN PO 12/16/17 00:45 (Roxicodone) 10 mg Q4H PRN PO 12/16/17 00:45 12/16/17 11:13 (Roxicodone) 5 mg Q4H PRN PO 12/16/17 00:45 (Chelsi-Colace) 1 tab BID PO 12/16/17 09:00 12/16/17 10:03 (Milk Of Magnesia Liq) 30 ml Q12H PRN PO 12/16/17 00:45 (Senokot) 17.2 mg Q12H PRN PO 12/16/17 00:45 (Dulcolax Supp) 10 mg DAILY PRN RECTAL 12/16/17 00:45 (Lactulose Liq) 30 ml DAILY PRN PO 12/16/17 00:45 (Inderal) 10 mg Q12HR PO 12/16/17 09:00 12/16/17 10:03 (Aldactone) 50 mg DAILY PO 12/16/17 09:00 12/16/17 11:13 (Lasix) 40 mg DAILY PO 12/16/17 09:00 12/16/17 10:04 (Flu (Quadrivalent) Vaccine Inj) 0.5 ml ONCE ONCE IM 12/17/17 10:00 12/17/17 10:01 A/P Problem List: (1) Cirrhosis ICD Code: K74.60 - Unspecified cirrhosis of liver (2) Ascites ICD Code: R18.8 - Other ascites (3) Coagulopathy ICD Code: D68.9 - Coagulation defect, unspecified (4) Lactic acidosis ICD Code: E87.2 - Acidosis (5) Pancreatitis ICD Code: K85.90 - Acute pancreatitis without necrosis or infection, unspecified (6) Elevated troponin ICD Code: R74.8 - Abnormal levels of other serum enzymes (7) Alcohol abuse ICD Code: F10.10 - Alcohol abuse, uncomplicated Assessment and Plan Cirrhosis: h/o Hepatitis, LFTs improved in comparison to previous labs from - CT Abd/Pelvis w/ Cirrhosis/Portal HTN. - Check hepatitis profile. - Consult GI, appreciate assistance - Continue on Propranolol 10mg BID with parameters, Aldactone 50mg daily and Lasix 40mg daily. - Monitor I/O. Ascites: New Onset. Progressive abdominal distention, moderate ascites on CT Abd/Pelvis. - s/p IR Diagnostic/Therapeutic Paracentesis. Follow-up on fluid studies, Gram stain, cytology. Coagulopathy: secondary to liver dysfunction. - INR 1.6, Platelets 95, no active bleeding at this time, monitor closely especially in light of varices seen on CT Abd/Pelvis. High risk for bleeding. Lactic Acidosis: Lactate 2.8, no obvious source of infection, afebrile, no leukocytosis, U/a negative for UTI. CXR w/ no acute findings, images reviewed by me. Likely secondary to dehydration/alcohol abuse. IVF-caution w/ overload from cirrhosis. Repeat Lactate 1.1. Pancreatitis: Abdominal pain. Lipase 476. Given IVF. Lipase improved to 242. Pain management with bowel regimen. Advance diet and monitor. Hypomagnesemia: improved s/p repletion but still low. IV repletion ordered. Repeat lab in am to monitor response. Elevated Trop: Trop 0.07, no c/o chest pain, EKG w no acute ischemia. Check serial cardiac enzymes for trend. Telemetry. Consult Cardiology as needed. High risk for bleeding, hold ASA/anticoagulation Alcohol Abuse: Daily, heavy, high risk for withdrawal. - CIWA, Seizure Precautions, MVT/Thiamine/Folate - continue to monitor for signs of withdrawal DVT Prophylaxis: Pharmacologic contraindication secondary to coagulopathy/ elevated INR. Discharge Planning Pending clinical improvement and GI clearance Jade Cunningham Dec 16, 2017 16:24
--- NOTE | 2017-12-16 18:32 | PD.CONS ---
HPI History of Present Illness This is a 57 year old M with medical history significant for Hepatitis B, COPD, ETOH abuse, and nicotine dependence. Pt presented to the emergency department yesterday with complaints of abdominal swelling and pain he states began approx 3 days ago. Pt reports abdomen has been increasing in size, he denies history of same. Reports abdominal pain to LLQ intermittent, growing in frequency over the last few days. Has also had a few episodes of nausea, denies vomiting. Has not had BM since being in hospital but reports BMs to be normal at home. Denies BRBPR, melena, acid reflux. Denies ever having EGD or colonoscopy. Denies ever being diagnosed with liver issues. Reports Hepatitis B 25 years ago , thinks he received medication for treatment. Current ETOH use of 4-5 beers a daily for over 40 years. Current pack a day smoker. Denies illict drug use. Denies significant family history. Denies abdominal surgeries in the past. Pt is now S/P paracentesis with 4000cc of cloudy, yellow fluid drained. Notes improvement in abdominal pain but still have some LLQ pain. CT abdomen and pelvis with IV contrast --> Cirrhotic liver with moderate ascites. There is a recannulized paraumbilical vein consistent with portal hypertension. There are varices in the upper abdomen. Tiny nonobstructing left renal stone. (Babita Zamora) PFSH Past Medical History PMH: HTN, Hepatitis B, Alcohol Abuse, Tobacco Abuse and COPD Past Surgical History PAST SURGICAL HISTORY: Skin graft (Babita Zamora) Coded Allergies: No Known Allergies (Verified Adverse Reaction, Unknown, 12/15/17) Family History PAST FAMILY HISTORY: Reviewed. No h/o DM or CAD Social History PAST SOCIAL HISTORY: Drinks 4-5 beers daily. Smokes 1ppd. Denies illicit drug use (Babita Zamora) Review of Systems Gastrointestinal: COMPLAINS OF: Abdominal pain, Nausea, Swelling of Abdomen, DENIES: Black stools, Bloody stools, Constipation, Diarrhea, Vomiting, Difficulty Swallowing, Heartburn, Hematemesis (Babita Zamora) GI Exam Vitals I&O Vital Signs Date Time Temp Pulse Resp B/P (MAP) Pulse Ox O2 Delivery O2 Flow Rate FiO2 12/16/17 16:00 97.8 85 18 118/76 (90) 95 12/16/17 12:00 98.2 82 18 112/66 (81) 92 12/16/17 10:02 96 14 113/67 (82) 95 12/16/17 08:42 98.4 90 20 126/78 (94) 90 12/16/17 03:16 111 18 117/89 (98) 95 Room Air 12/16/17 00:51 114 20 116/68 (84) 95 Room Air 12/15/17 23:51 120 18 132/64 (86) 95 Room Air 12/15/17 23:10 96 21 12/15/17 20:14 107 18 146/78 (100) 96 Room Air 12/15/17 18:13 98.8 111 20 145/84 (104) 97 I/O 12/15/17 12/15/17 12/15/17 12/16/17 12/16/17 12/16/17 07:00 15:00 23:00 07:00 15:00 23:00 Intake Total 1350 ml 100 ml Balance 1350 ml 100 ml Intake IV Total 1350 ml 100 ml # Voids 1 Imaging Last Impressions Cyst Biopsy Asp-Paracentesis US 12/16/17 0000 Signed Impressions: Service Date/Time: Saturday, December 16, 2017 08:35 - CONCLUSION: Uncomplicated ultrasound guided paracentesis. Cornel Sol MD Chest X-Ray 12/15/171943 Signed Impressions: Service Date/Time: Friday, December 15, 2017 19:53 - CONCLUSION: No evidence of acute cardiopulmonary disease. Cornel Cortez MD Abdomen/Pelvis CT 12/15/171943 Signed Impressions: Service Date/Time: Friday, December 15, 2017 22:42 - CONCLUSION: 1. Cirrhotic liver with moderate ascites. There is a recannulized paraumbilical vein consistent with portal hypertension. There are varices in the upper abdomen. 2. Tiny nonobstructing left renal stones. Cornel Cuellar MD Laboratory Test 12/15/17 19:55 12/15/17 22:00 12/16/17 06:05 12/16/17 09:20 White Blood Count 7.9 TH/MM3 7.0 TH/MM3 Red Blood Count 3.20 MIL/MM3 2.89 MIL/MM3 Hemoglobin 11.7 GM/DL 10.8 GM/DL Hematocrit 33.6 % 30.9 % Mean Corpuscular Volume 105.2 FL 106.8 FL Mean Corpuscular Hemoglobin 36.7 PG 37.2 PG Mean Corpuscular Hemoglobin Concent 34.9 % 34.8 % Red Cell Distribution Width 13.7 % 14.1 % Platelet Count 98 TH/MM3 95 TH/MM3 Mean Platelet Volume 9.5 FL 10.0 FL Neutrophils (%) (Auto) 76.4 % 67.5 % Lymphocytes (%) (Auto) 12.9 % 16.8 % Monocytes (%) (Auto) 9.2 % 12.7 % Eosinophils (%) (Auto) 0.3 % 1.7 % Basophils (%) (Auto) 1.2 % 1.3 % Neutrophils # (Auto) 6.0 TH/MM3 4.7 TH/MM3 Lymphocytes # (Auto) 1.0 TH/MM3 1.2 TH/MM3 Monocytes # (Auto) 0.7 TH/MM3 0.9 TH/MM3 Eosinophils # (Auto) 0.0 TH/MM3 0.1 TH/MM3 Basophils # (Auto) 0.1 TH/MM3 0.1 TH/MM3 CBC Comment AUTO DIFF AUTO DIFF Differential Comment AUTO DIFF CONFIRMED AUTO DIFF CONFIRMED Platelet Estimate LOW LOW Platelet Morphology Comment NORMAL NORMAL Prothrombin Time 16.4 SEC 16.6 SEC Prothromb Time International Ratio 1.6 RATIO 1.6 RATIO Activated Partial Thromboplast Time 32.2 SEC Blood Urea Nitrogen 4 MG/DL 4 MG/DL Creatinine 0.63 MG/DL 0.59 MG/DL Random Glucose 104 MG/DL 105 MG/DL Total Protein 7.6 GM/DL 7.1 GM/DL Albumin 1.7 GM/DL 1.5 GM/DL Calcium Level 7.6 MG/DL 7.1 MG/DL Magnesium Level 1.0 MG/DL 1.7 MG/DL Alkaline Phosphatase 162 U/L 148 U/L Aspartate Amino Transf (AST/SGOT) 215 U/L 191 U/L Alanine Aminotransferase (ALT/SGPT) 64 U/L 60 U/L Total Bilirubin 2.5 MG/DL 3.8 MG/DL Sodium Level 135 MEQ/L 136 MEQ/L Potassium Level 3.3 MEQ/L 3.7 MEQ/L Chloride Level 99 MEQ/L 102 MEQ/L Carbon Dioxide Level 28.0 MEQ/L 27.9 MEQ/L Anion Gap 8 MEQ/L 6 MEQ/L Estimat Glomerular Filtration Rate 132 ML/MIN 142 ML/MIN Lactic Acid Level 2.8 mmol/L 1.1 mmol/L Troponin I 0.07 NG/ML Lipase 476 U/L 242 U/L Ethyl Alcohol Level 74 MG/DL Urine Color DARK-BROWN Urine Turbidity HAZY Urine pH 6.0 Urine Specific [place] 1.021 Urine Protein TRACE mg/dL Urine Glucose (UA) NEG mg/dL Urine Ketones NEG mg/dL Urine Occult Blood NEG Urine Nitrite NEG Urine Bilirubin MOD Urine Urobilinogen GREATER THAN 12.0 MG/DL Urine Leukocyte Esterase NEG Urine RBC 4 /hpf Urine WBC 1 /hpf Urine Amorphous Sediment RARE Urine Mucus MANY /lpf Microscopic Urinalysis Comment CULT NOT INDICATED Lactate Dehydrogenase 334 U/L Protein Corrected Calcium 7.1 MG/DL Peritoneal Fluid WBC 120 /MM3 Peritoneal Fluid RBC 100 /MM3 Peritoneal Fluid Neutrophils 15 % Peritoneal Fluid Lymphocytes 44 % Peritoneal Fluid Histiocytes 13 % Peritoneal Fluid Mesothelial Cells 28 % Peritoneal Fluid Total Protein 1.5 GM/DL Peritoneal Fluid LDH 94 U/L Date/Time Source Procedure Growth Status 12/16/17 09:20 Fluid Peritoneal Fluid Gram Stain Pending Received 12/16/17 09:20 Fluid Peritoneal Fluid Body Fluid Culture Pending Received Physical Examination HEENT: Normocephalic; atraumatic CHEST: Expiratory wheezing CARDIAC: RRR ABDOMEN: Distended, soft, mild LLQ tenderness, bowel sounds active EXTREMITIES: No clubbing, cyanosis, or edema. SKIN: Normal; no rash SHOE DRESSER: No focal deficits; alert and oriented times three. (Babita Zamora) Assessment and Plan Plan Assessment: - Cirrhosis with acute alcoholic hepatitis: Pt denies history of liver issues, however, was diagnosed with Hepatitis B approx 25 years ago He thinks he had to receive medication for treatment. Labs consistent with alcoholic hepatitis. Currently labs are as follows AST-191 ALT-60 Alk phos-148 T bili 3.8. DF-25 No indications for corticosteroids at this time. Pt now S/P paracentesis with 4000mL of cloudy, yellow fluid drained. Peritoneal fluid gram stain pending. Peritoneal WBC- 120 RBC-100. No evidence for SBP. SAAG- unable to document due to no peritoneal albumin tested, however ascites likely secondary to portal hypertension given CT results. CT abdomen and pelvis with IV contrast --> Cirrhotic liver with moderate ascites. There is a recannulized paraumbilical vein consistent with portal hypertension. There are varices in the upper abdomen. Tiny nonobstructing left renal stone. Will do liver work up to rule out other causes of cirrhosis given pt has never been diagnosed prior. - History of Hepatitis B- will order labs to determine clearance of virus and immunity - Elevated Lipase- was 476 now WNL- likely secondary to ETOH - Anemia- macrocytic- no obvious GIB- likely secondary to folate or B12 deficiency- will obtain labs - Coagulopathy- INR 1.6 PT 16.6 Plan: - Liver workup - Hepatitis B labs - Ammonia level - Monitor LFTs and INR - Serum B12 and folate - EGD- timing to be determined by Dr. Hess - 2 gm sodium diet - Continue Propranolol - Continue Spironolactone - Continue Lasix - Continue Lactulose - Will add PPI - Monitor H/H - Transfuse as needed - Notify GI of any active bleeding - ETOH cessation discussed - Supportive care - Further recommendations to follow based on results of above Pt has been seen and examined by myself and Dr. Hess and this note is written on his behalf (Babita Zamora) Physician Comments Patient seen and examined Agree with above Continue with current supportive care Monitor labs (Lauro Hess MD) Babita Zamora Dec 16, 2017 18:32 Lauro Hess MD Dec 17, 2017 00:06
[2017-12-16] MEDS: FAMOTIDINE 20 MG TAB PO SCH (19:34)
[2017-12-16] MEDS: RESP: ALBUTEROL 2.5 MG/IPRATROPIUM 0.5 MG NEB (SCH) NEB (21:28)
[2017-12-16 22:52] LABS: % SATURATION IRON PROFILE 98.9 % (20-50); IRON (FE) 108 MCG/DL (65-175); TOTAL IRON BINDING CAPACITY 109 MCG/DL (250-450)
[2017-12-16 23:43] LABS: FERRITIN 1028 NG/ML (26-388); FOLATE 6.4 NG/ML (3.1-17.5)
[2017-12-17] VITALS (7 sets, daily range): BP systolic 99–115; BP diastolic 57–70; PULSE 75–94; RESP 16–18; TEMP 96.9–99.2; O2SAT 94–100
[2017-12-17] MEDS: RESP: ALBUTEROL 2.5 MG/IPRATROPIUM 0.5 MG NEB (SCH) NEB ×3 (08:00→19:16)
[2017-12-17] MEDS: PROPRANOLOL HCL 10 MG TAB PO SCH ×2 (08:10→20:02)
[2017-12-17] MEDS: FUROSEMIDE 40 MG TAB PO SCH (08:10)
[2017-12-17] MEDS: SPIRONOLACTONE 50 MG TAB PO SCH (08:10)
[2017-12-17] MEDS: FAMOTIDINE 20 MG TAB PO SCH ×2 (08:10→20:02)
[2017-12-17] MEDS: DOCUSATE SODIUM 50 MG/SENNA 8.6 MG TAB PO SCH ×2 (08:10→20:02)
[2017-12-17] MEDS: PANTOPRAZOLE SOD 40 MG DELAYED RELEASE TAB PO SCH (08:10)
[2017-12-17] MEDS: SODIUM CHLORIDE 0.9% FLUSH 10 ML FLUSH IV FLUSH SCH ×2 (08:12→20:03)
[2017-12-17 08:35] LABS: AUTOMATED NEUTROPHIL # 4.7 TH/MM3 (1.8-7.7); BASOPHIL # 0.1 TH/MM3 (0-0.2); BASOPHIL % 1.4 % (0.0-2.0); EOSINOPHIL # 0.2 TH/MM3 (0-0.4); EOSINOPHIL % 2.8 % (0.0-4.0); HEMATOCRIT 33.2 % (39.0-51.0); HEMOGLOBIN 11.4 GM/DL (13.0-17.0); LYMPH % 20.2 % (9.0-44.0); LYMPHOCYTE # 1.5 TH/MM3 (1.0-4.8); MEAN CELL VOLUME 107.3 FL (80.0-100.0); MEAN CORPUSCULAR HEMOGLOBIN 36.8 PG (27.0-34.0); MEAN CORPUSCULAR HGB CONC 34.3 % (32.0-36.0); MEAN PLATELET VOLUME 9.6 FL (7.0-11.0); MONO % 13.6 % (0.0-8.0); PLATELET COUNT 101 TH/MM3 (150-450); RED BLOOD COUNT 3.09 MIL/MM3 (4.50-5.90); RED CELL DISTRIBUTION WIDTH 13.6 % (11.6-17.2); WHITE BLOOD COUNT 7.5 TH/MM3 (4.0-11.0)
[2017-12-17 09:07] LABS: INTERNATIONAL NORMALIZED RATIO 1.8 RATIO; PROTHROMBIN TIME - PATIENT 18.1 SEC (9.8-11.6)
[2017-12-17] MEDS ORDERED: INFLUENZA VIRUS VACCINE (QUADRIVALENT) 0.5 ML SYR IM ONE (10:00)
--- NOTE | 2017-12-17 10:22 | HHI.PR ---
Subjective Remarks f/u for hepatitis/cirrhosis of liver complicated by new onset ascites. abdominal pain improving but does have intermittent sharp pain. denied any N/V. no fevers over night. Per GI wants EGD. no other issues overnight. patient ate breakfast this morning with no issues. Objective Vitals Vital Signs Date Time Temp Pulse Resp B/P (MAP) Pulse Ox O2 Delivery O2 Flow Rate FiO2 12/17/17 08:00 97.9 78 18 112/63 (79) 98 12/17/17 04:00 98.1 84 18 107/64 (78) 98 12/17/17 03:53 16 12/17/17 03:12 80 12/17/17 00:00 87 12/17/17 00:00 99.2 94 16 114/65 (81) 100 12/16/17 20:00 99.6 87 16 98/66 (77) 99 12/16/17 19:42 88 12/16/17 16:00 97.8 85 18 118/76 (90) 95 12/16/17 12:00 98.2 82 18 112/66 (81) 92 I/O 12/16/17 12/16/17 12/16/17 12/17/17 12/17/17 12/17/17 07:00 15:00 23:00 07:00 15:00 23:00 Intake Total 1350 ml 340 ml 360 ml Output Total 625 ml 450 ml Balance 1350 ml -285 ml -90 ml Intake Oral 240 ml 360 ml IV Total 1350 ml 100 ml Output Urine Total 625 ml 450 ml # Bowel Movements 0 0 Result Diagram: 12/17/17 0812 12/16/17 0605 Objective Remarks GENERAL: in NAD CARDIOVASCULAR: Regular rate and rhythm without murmurs, gallops, or rubs. RESPIRATORY: Breath sounds equal bilaterally. No accessory muscle use. GASTROINTESTINAL: Abdomen soft, distended. no peritoneal signs. mild TTP diffusely. MUSCULOSKELETAL: No cyanosis, or edema. BACK: Nontender without obvious deformity. No CVA tenderness. Procedures s/p IR paracentesis Medications and IVs Current Medications Morphine Sulfate (Morphine Inj) 2 mg ONCE ONCE IV PUSH Last administered on at 20:00; Start 12/15/17 at 19:45; Stop 12/15/17 at 19:46; Status DC Ondansetron HCl (Zofran Inj) 4 mg ONCE ONCE IVP Last administered on at 20:01; Start 12/15/17 at 19:45; Stop 12/15/17 at 19:46; Status DC Sodium Chloride (NS Flush) 2 ml UNSCH PRN IV FLUSH FLUSH AFTER USING IV ACCESS ; Start 12/15/17 at 19:45; Stop 12/16/17 at 11:28; Status DC Iohexol (Omnipaque 350 Inj) 92 ml STK-MED ONCE IVCONTRAST Last administered on 12/15/17at 18:06; Start 12/15/17 at 18:06; Stop 12/15/17 at 22:46; Status DC Albuterol/ Ipratropium (Duoneb Neb) 1 ampule ONCE ONCE NEB Last administered on 12/15/17at 23:09; Start 12/15/17 at 23:15; Stop 12/15/17 at 23:16; Status DC Nitroglycerin (Nitroglycerin 2% Oint) 0.5 inch ONCE ONCE TOPICAL Last administered on 12/15/17at 23:23; Start 12/15/17 at 23:15; Stop 12/15/17 at 23:16 ; Status DC Magnesium Sulfate/ Dextrose 100 ml @ 100 mls/hr Q1H IV Last administered on at 02:35; Start 12/16/17 at 00:00; Stop 12/16/17 at 01:59; Status DC Morphine Sulfate (Morphine Inj) 2 mg ONCE ONCE IV PUSH Last administered on at 00:43; Start 12/16/17 at 00:00; Stop 12/16/17 at 00:01; Status DC Calcium Carbonate (Tums Chew) 500 mg ONCE ONCE CHEW Last administered on at 00:42; Start 12/16/17 at 00:00; Stop 12/16/17 at 00:01; Status DC Sodium Chloride 1,000 ml @ 999 mls/hr BOLUS ONCE IV Last administered on 12/16at 00:43; Start 12/16/17 at 00:00; Stop 12/16/17 at 01:00; Status DC Piperacillin Sod/ Tazobactam Sod 100 ml @ 200 mls/hr ONCE ONCE IV Last administered on 12/16/17at 00:43; Start 12/16/17 at 00:00; Stop 12/16/17 at 00:29 ; Status DC Vancomycin HCl 1000 mg/Sodium Chloride 250 ml @ 250 mls/hr ONCE ONCE IV Last administered on 12/16/17at 01:20; Start 12/16/17 at 00:00; Stop 12/16/17 at 00:59 ; Status DC Flumazenil (Romazicon Inj) 0.2 mg Q1M PRN IV PUSH SEE LABEL COMMENTS; Start at 00:00 Lorazepam (Ativan) 1 mg Q4H PRN PO CIWA 8 - 10 Last administered on 12/16/17at 03:17; Start 12/16/17 at 00:00 Lorazepam (Ativan Inj) 1 mg Q4H PRN IV PUSH CIWA 8 - 10; Start 12/16/17 at 00: 00 Lorazepam (Ativan) 2 mg Q2H PRN PO CIWA 11-14; Start 12/16/17 at 00:00 Lorazepam (Ativan Inj) 2 mg Q2H PRN IV PUSH CIWA 11-14; Start 12/16/17 at 00:00 Lorazepam (Ativan Inj) 2 mg Q1H PRN IV PUSH CIWA 15-20; Start 12/16/17 at 00:00 Lorazepam (Ativan Inj) 2 mg Q15M PRN IV PUSH CIWA > 20; Start 12/16/17 at 00:00 Potassium Chloride (KCl) 40 meq ONCE ONCE PO Last administered on 12/16/17at 00 :43; Start 12/16/17 at 00:00; Stop 12/16/17 at 00:01; Status DC Famotidine (Pepcid Inj) 20 mg Q12H IV PUSH Last administered on 12/16/17at 10:04 ; Start 12/16/17 at 09:00; Stop 12/16/17 at 16:20; Status DC Sodium Chloride (NS Flush) 2 ml UNSCH PRN IV FLUSH FLUSH AFTER USING IV ACCESS ; Start 12/16/17 at 00:45 Sodium Chloride (NS Flush) 2 ml BID IV FLUSH Last administered on 12/17/17at 08: 12; Start 12/16/17 at 09:00 Ondansetron HCl (Zofran Inj) 4 mg Q6H PRN IVP NAUSEA OR VOMITING; Start at 00:45 Acetaminophen (Tylenol) 650 mg Q6H PRN PO FEVER/PAIN SCALE 1 TO 2; Start at 00:45 Oxycodone HCl (Roxicodone) 10 mg Q4H PRN PO PAIN SCALE 6 TO 10 Last administered on 12/17/17at 08:11; Start 12/16/17 at 00:45 Oxycodone HCl (Roxicodone) 5 mg Q4H PRN PO PAIN SCALE 3 TO 5; Start 12/16/17 at 00:45 Senna/Docusate Sodium (Chelsi-Colace) 1 tab BID PO Last administered on at 08:10; Start 12/16/17 at 09:00 Magnesium Hydroxide (Milk Of Magnesia Liq) 30 ml Q12H PRN PO Mild constipation ; Start 12/16/17 at 00:45 Sennosides (Senokot) 17.2 mg Q12H PRN PO Moderate constipation; Start 12/16/17 at 00:45 Bisacodyl (Dulcolax Supp) 10 mg DAILY PRN RECTAL SEVERE CONSITIPATION; Start at 00:45 Lactulose (Lactulose Liq) 30 ml DAILY PRN PO SEVERE CONSITIPATION; Start at 00:45 Propranolol HCl (Inderal) 10 mg Q12HR PO Last administered on 12/17/17at 08:10; Start 12/16/17 at 09:00 Spironolactone (Aldactone) 50 mg DAILY PO Last administered on 12/17/17at 08:10 ; Start 12/16/17 at 09:00 Furosemide (Lasix) 40 mg DAILY PO Last administered on 12/17/17at 08:10; Start 12/16/17 at 09:00 Influenza Virus Vaccine (Flu (Quadrivalent) Vaccine Inj) 0.5 ml ONCE ONCE IM Last administered on 12/17/17at 08:13; Start 12/17/17 at 10:00; Stop 12/17/17 at 10:01; Status DC Albuterol/ Ipratropium (Duoneb Neb) 1 ampule Q6HR WHILE AWAKE NEB NEB Last administered on 12/16/17at 21:28; Start 12/16/17 at 20:00 Magnesium Sulfate/ Dextrose 100 ml @ 100 mls/hr ONCE ONCE IV Last administered on 12/16/17at 16:21; Start 12/16/17 at 16:00; Stop 12/16/17 at 16:59 ; Status DC Famotidine (Pepcid) 20 mg BID PO Last administered on 12/17/17at 08:10; Start at 21:00 Pantoprazole Sodium (Protonix) 40 mg DAILY PO Last administered on 12/17/17at 08 :10; Start 12/17/17 at 09:00 A/P Problem List: (1) Cirrhosis ICD Code: K74.60 - Unspecified cirrhosis of liver (2) Ascites ICD Code: R18.8 - Other ascites (3) Coagulopathy ICD Code: D68.9 - Coagulation defect, unspecified (4) Lactic acidosis ICD Code: E87.2 - Acidosis (5) Pancreatitis ICD Code: K85.90 - Acute pancreatitis without necrosis or infection, unspecified (6) Elevated troponin ICD Code: R74.8 - Abnormal levels of other serum enzymes (7) Alcohol abuse ICD Code: F10.10 - Alcohol abuse, uncomplicated Assessment and Plan This is a 57 y/o M with cirrhosis who p/w abdominal pain and new onset ascites Cirrhosis: h/o Hepatitis, LFTs improved in comparison to previous labs from - CT Abd/Pelvis w/ Cirrhosis/Portal HTN. - pending hepatitis panel. - Consult GI consulted and ff. Per GI will do EGD. - Continue on Propranolol 10mg BID with parameters, Aldactone 50mg daily and Lasix 40mg daily. - Monitor I/O. Ascites: New Onset. Progressive abdominal distention, moderate ascites on CT Abd/Pelvis. - s/p IR Diagnostic/Therapeutic Paracentesis. cultures negative. pain improved after paracentesis. Coagulopathy: secondary to liver dysfunction. - INR 1.6, Platelets 95, no active bleeding at this time, monitor closely especially in light of varices seen on CT Abd/Pelvis. High risk for bleeding. -today INR 1.8 no signs of bleeding. Lactic Acidosis: Lactate 2.8, no obvious source of infection, afebrile, no leukocytosis, U/a negative for UTI. CXR w/ no acute findings, images reviewed by me. Likely secondary to dehydration/alcohol abuse. IVF-caution w/ overload from cirrhosis. Repeat Lactate 1.1. Pancreatitis: Abdominal pain but improving. tolerating oral intake. recommend to not drink ETOH. Hypomagnesemia: replenish as needed Elevated Trop: Trop 0.07, no c/o chest pain, EKG w no acute ischemia. CE stable and flat and asymptomatic . Alcohol Abuse: Daily, heavy, high risk for withdrawal. - CIWA, Seizure Precautions, MVT/Thiamine/Folate - continue to monitor for signs of withdrawal DVT Prophylaxis: Pharmacologic contraindication secondary to coagulopathy/ elevated INR. Danay Collado MD Dec 17, 2017 10:22
[2017-12-17 11:29] LABS: HEPATITIS B SURFACE ANTIGEN NEGATIVE (NEGATIVE)
[2017-12-17 11:30] LABS: HEPATITIS A AB IGM NEGATIVE (NEGATIVE); HEPATITIS B CORE AB IGM NEGATIVE (NEGATIVE); HEPATITIS B SURFACE ANTIGEN NEGATIVE (NEGATIVE); HEPATITIS C AB IgG REACTIVE (NEGATIVE)
[2017-12-17 14:00] LABS: ALBUMIN 1.5 GM/DL (3.4-5.0); BICARBONATE 29.1 MEQ/L (21.0-32.0); CREATININE 0.82 MG/DL (0.60-1.30); MAGNESIUM 1.4 MG/DL (1.5-2.5); TOTAL BILIRUBIN ADULT 4.3 MG/DL (0.2-1.0); TOTAL PROTEIN 7.4 GM/DL (6.4-8.2); TROPONIN I 0.08 NG/ML (0.02-0.05)
[2017-12-17 14:03] LABS: CALCIUM 7.4 MG/DL (8.5-10.1); CALCIUM-PROTEIN CORRECTED 7.3 MG/DL (8.5-10.1)
--- NOTE | 2017-12-17 14:17 | HHI.GIFU ---
Subjective Remarks Pt resting in bed. "Can I leave to go get something to eat and then come back?" Still c/o left quadrant pain. (Dona Wade) Objective Vitals I&O Vital Signs Date Time Temp Pulse Resp B/P (MAP) Pulse Ox O2 Delivery O2 Flow Rate FiO2 12/17/17 12:00 96.9 75 18 115/70 (85) 99 12/17/17 08:00 97.9 78 18 112/63 (79) 98 12/17/17 04:00 98.1 84 18 107/64 (78) 98 12/17/17 03:53 16 12/17/17 03:12 80 12/17/17 00:00 87 12/17/17 00:00 99.2 94 16 114/65 (81) 100 12/16/17 20:00 99.6 87 16 98/66 (77) 99 12/16/17 19:42 88 12/16/17 16:00 97.8 85 18 118/76 (90) 95 I/O 12/16/17 12/16/17 12/16/17 12/17/17 12/17/17 12/17/17 07:00 15:00 23:00 07:00 15:00 23:00 Intake Total 1350 ml 340 ml 360 ml Output Total 625 ml 450 ml Balance 1350 ml -285 ml -90 ml Intake Oral 240 ml 360 ml IV Total 1350 ml 100 ml Output Urine Total 625 ml 450 ml # Bowel Movements 0 0 Laboratory Laboratory Tests Test 12/16/17 18:05 12/17/17 08:12 12/17/17 12:49 Hepatitis A IgM Antibody NEGATIVE Hepatitis B Surface Antigen NEGATIVE NEGATIVE Hepatitis B Core IgM Antibody NEGATIVE Hepatitis C Antibody REACTIVE White Blood Count 7.5 Red Blood Count 3.09 Hemoglobin 11.4 Hematocrit 33.2 Mean Corpuscular Volume 107.3 Mean Corpuscular Hemoglobin 36.8 Mean Corpuscular Hemoglobin Concent 34.3 Red Cell Distribution Width 13.6 Platelet Count 101 Mean Platelet Volume 9.6 Neutrophils (%) (Auto) 62.0 Lymphocytes (%) (Auto) 20.2 Monocytes (%) (Auto) 13.6 Eosinophils (%) (Auto) 2.8 Basophils (%) (Auto) 1.4 Neutrophils # (Auto) 4.7 Lymphocytes # (Auto) 1.5 Monocytes # (Auto) 1.0 Eosinophils # (Auto) 0.2 Basophils # (Auto) 0.1 CBC Comment DIFF FINAL Differential Comment Prothrombin Time 18.1 Prothromb Time International Ratio 1.8 Ammonia 87 Troponin I 0.07 Tumor Marker Alpha Fetoprotein 3.4 Hepatitis B Surface Antibody, Quant 0 Date/Time Source Procedure Growth Status 12/16/17 09:20 Fluid Peritoneal Fluid Gram Stain - Final Resulted 12/16/17 09:20 Fluid Peritoneal Fluid Body Fluid Culture Pending Resulted Imaging Last Impressions Cyst Biopsy Asp-Paracentesis US 12/16/17 0000 Signed Impressions: Service Date/Time: Saturday, December 16, 2017 08:35 - CONCLUSION: Uncomplicated ultrasound guided paracentesis. Cornel Sol MD Chest X-Ray 12/15/171943 Signed Impressions: Service Date/Time: Friday, December 15, 2017 19:53 - CONCLUSION: No evidence of acute cardiopulmonary disease. Cornel Cortez MD Abdomen/Pelvis CT 12/15/171943 Signed Impressions: Service Date/Time: Friday, December 15, 2017 22:42 - CONCLUSION: 1. Cirrhotic liver with moderate ascites. There is a recannulized paraumbilical vein consistent with portal hypertension. There are varices in the upper abdomen. 2. Tiny nonobstructing left renal stones. Cornel Cuellar MD Physical Exam HEENT: PERRL; normocephalic; atraumatic; no jaundice. CHEST: wheezes, rhonchi CARDIAC: RRR ABDOMEN: Soft, distended, left quadrant TTP, bowel sounds are present in all four quadrants. EXTREMITIES: No clubbing, cyanosis, or edema. SKIN: Normal; no rash; no jaundice. [employer]: No focal deficits; alert and oriented times three. (Dona Wade [facility]) Assessment and Plan Plan Assessment: - Cirrhosis with acute alcoholic hepatitis: Pt denies history of liver issues, however, was diagnosed with Hepatitis B approx 25 years ago He thinks he had to receive medication for treatment. Labs consistent with alcoholic hepatitis. S/P paracentesis with 4000mL of cloudy, yellow fluid drained. Peritoneal fluid gram stain neg. Peritoneal WBC- 120 RBC-100. No evidence for SBP. SAAG- unable to document due to no peritoneal albumin tested, however ascites likely secondary to portal hypertension given CT results. CT abdomen and pelvis with IV contrast --> Cirrhotic liver with moderate ascites. There is a recannulized paraumbilical vein consistent with portal hypertension. There are varices in the upper abdomen. Tiny nonobstructing left renal stone. NH 87. DF=32 hcv ab reactive, will get quant and genotype. liver w/u pending. will do EGD tomorrow - History of Hepatitis B- hep B core IgM neg, other labs pending - Elevated Lipase- was 476 now WNL- likely secondary to ETOH - Anemia- macrocytic- no obvious GIB- likely secondary to folate or B12 deficiency- HH stable - Coagulopathy- mild worsening Plan: - EGD tomorrow - obtain consent - NPO after MN - await Liver workup - await rest of hep b labwork - hcv quant and genotype - Monitor labs - 2 gm sodium diet - Continue Propranolol - Continue Spironolactone - Continue Lasix - Continue Lactulose - cont PPI - Monitor H/H - Transfuse as needed - Notify GI of any active bleeding - ETOH cessation discussed - Supportive care - Further recommendations to follow based on results of above Pt has been seen and examined by myself and Dr. Hess and this note is written on his behalf (Dona Wade) Physician Comments Patient seen and examined Agree with above Continue with current supportive care Monitor labs EGD tomorrow (Lauro Hess MD) Dona Wade Dec 17, 2017 14:17 Lauro Hess MD Dec 18, 2017 00:50
[2017-12-18] VITALS: BP 103/64; PULSE 79; RESP 18; TEMP 99.1; O2SAT 99
[2017-12-18] MEDS: PROPRANOLOL HCL 10 MG TAB PO SCH (07:50)
[2017-12-18 08:00] VITALS: BP 103/60; PULSE 83; RESP 19; TEMP 99.3; O2SAT 100
[2017-12-18] MEDS: FAMOTIDINE 20 MG TAB PO SCH (09:34)
[2017-12-18] MEDS: FUROSEMIDE 40 MG TAB PO SCH (09:34)
[2017-12-18] MEDS: DOCUSATE SODIUM 50 MG/SENNA 8.6 MG TAB PO SCH (09:34)
[2017-12-18] MEDS: SPIRONOLACTONE 50 MG TAB PO SCH (09:34)
[2017-12-18] MEDS: PANTOPRAZOLE SOD 40 MG DELAYED RELEASE TAB PO SCH (09:34)
[2017-12-18] MEDS: SODIUM CHLORIDE 0.9% FLUSH 10 ML FLUSH IV FLUSH SCH (09:35)
[2017-12-18 11:57] LABS: HEMATOCRIT 33.5 % (39.0-51.0); HEMOGLOBIN 11.5 GM/DL (13.0-17.0); MEAN CORPUSCULAR HEMOGLOBIN 36.6 PG (27.0-34.0); MEAN CORPUSCULAR HGB CONC 34.2 % (32.0-36.0); MEAN PLATELET VOLUME 9.2 FL (7.0-11.0); PLATELET COUNT 99 TH/MM3 (150-450); RED BLOOD COUNT 3.14 MIL/MM3 (4.50-5.90); RED CELL DISTRIBUTION WIDTH 13.6 % (11.6-17.2); WHITE BLOOD COUNT 7.4 TH/MM3 (4.0-11.0)
[2017-12-18 12:00] VITALS: BP 113/56; PULSE 81; RESP 18; TEMP 98.1; O2SAT 100
[2017-12-18] MEDS ORDERED: PROPOFOL 200 MG/20 ML AMP IV ONE (12:00)
[2017-12-18] MEDS ORDERED: ePHEDrine/NS 25 MG/5 ML SYRINGE IV ONE (12:00)
[2017-12-18] MEDS ORDERED: LIDOCAINE HCL 1% PF 5 ML SYRINGE OTHER ONE (12:00)
[2017-12-18 12:21] LABS: SMOOTH MUSCLE TOTAL AUTOABS Negative (Negative)
[2017-12-18 12:22] LABS: BICARBONATE 30.7 MEQ/L (21.0-32.0); CALCIUM 7.5 MG/DL (8.5-10.1); CREATININE 0.8 MG/DL (0.60-1.30)
[2017-12-18 13:12] LABS: ANA SCREEN POS (NEG)
--- NOTE | 2017-12-18 13:49 | PD.PROCEDR ---
GI Procedure PROCEDURE PERFORMED EGD with biopsy INDICATION FOR PROCEDURE Cirrhosis PROCEDURE: The procedure, risks and benefits were discussed with Mr. Gipson and informed consent was obtained. Anesthesia sedated him with Diprivan. He was placed in the left lateral decubitus position. EGD: The Pentax videoscope was introduced through the oropharynx and advanced to the second portion of the duodenum under direct visualization. Retroflexion was performed in the stomach. FINDINGS: The esophagus this was unremarkable no esophageal varices The stomach the gastric mucosa appeared to be diffusely edematous and somewhat erythemic in a patchy way consistent with some gastritis and maybe portal gastropathy antral biopsies were taken further evaluation The duodenum this was normal ESTIMATED BLOOD LOSS: None SPECIMENS REMOVED: Antral biopsy COMPLICATIONS: None IMPRESSION: Gastritis/portal gastropathy PLAN: Await biopsies Continue with current supportive care Monitor labs EGD in 1 year Lauro Hess MD Dec 18, 2017 13:49
[2017-12-18 13:55] VITALS: BP 91/54; PULSE 96; RESP 16; TEMP 97.9; O2SAT 96
[2017-12-18] MEDS: RESP: ALBUTEROL 2.5 MG/IPRATROPIUM 0.5 MG NEB (SCH) NEB (14:00)
[2017-12-18] MEDS ORDERED: ALDA50TA2 PO (14:52)
[2017-12-18] MEDS ORDERED: PROP10TA6 PO (14:52)
[2017-12-18] MEDS ORDERED: PANT40TA3 PO (14:52)
[2017-12-18] MEDS ORDERED: FURO40TA PO (14:52)
--- NOTE | 2017-12-18 14:56 | HHI.DS ---
Discharge Summary Admission Date Dec 16, 2017 at 00:41 Discharge Date: Dec 18, 2017 Admitting Diagnosis abdominal pain; alcohol hepatitis; hyperlipasemia; elevated troponin (1) Cirrhosis ICD Code: K74.60 - Unspecified cirrhosis of liver (2) Ascites ICD Code: R18.8 - Other ascites (3) Coagulopathy ICD Code: D68.9 - Coagulation defect, unspecified (4) Lactic acidosis ICD Code: E87.2 - Acidosis (5) Pancreatitis ICD Code: K85.90 - Acute pancreatitis without necrosis or infection, unspecified (6) Elevated troponin ICD Code: R74.8 - Abnormal levels of other serum enzymes (7) Alcohol abuse ICD Code: F10.10 - Alcohol abuse, uncomplicated Procedures s/p IR paracentesis Brief History - From Admission This is a 67-year-old male with a PMH of HTN, Hepatitis B, Alcohol Abuse, Tobacco Abuse and COPD who presented to the ER w/ complaints of abdominal pain. States symptoms started 2 days ago, localized to LUQ, severe 8/10, intermittent, sharp and non-radiating. Associated w/ nausea, no vomiting and few episodes of diarrhea. Also reports progressive abdominal distention w/ subjective fever/chills. Denies chest pain or sick contacts. Admits to drinking 8-10 beers/day, has been drinking less due to above symptoms. On arrival, BP 145/84, HR 111, O2 sat 97% on RA, Afebrile. Hemoglobin 11.7. Platelets 98, previously 205 on 06/25/17. Lactic Acid 2.8. LFTs decreased in comparison to previous labs. Troponin 0.07. Lipase 476. INR 1.6. UA negative. Alcohol 74. CXR with no acute findings. CT Abd/Pelvis w/ cirrhotic liver with moderate ascites, recannulized paraumbilical vein consistent with portal hypertension, varices and upper abdomen. On exam, pt w/ ascites, no previous h/o paracentesis. CBC/BMP: 12/18/17 1122 12/18/17 1122 Significant Findings Laboratory Tests Test 12/15/17 19:55 12/15/17 22:00 1/15/18 06:05 12/16/17 09:20 Red Blood Count 3.20 MIL/MM3 (4.50-5.90) 2.89 MIL/MM3 (4.50-5.90) Hemoglobin 11.7 GM/DL (13.0-17.0) 10.8 GM/DL (13.0-17.0) Hematocrit 33.6 % (39.0-51.0) 30.9 % (39.0-51.0) Mean Corpuscular Volume 105.2 FL (80.0-100.0) 106.8 FL (80.0-100.0) Mean Corpuscular Hemoglobin 36.7 PG (27.0-34.0) 37.2 PG (27.0-34.0) Platelet Count 98 TH/MM3 (150-450) 95 TH/MM3 (150-450) Neutrophils (%) (Auto) 76.4 % (16.0-70.0) Monocytes (%) (Auto) 9.2 % (0.0-8.0) 12.7 % (0.0-8.0) Platelet Estimate LOW (NORMAL) LOW (NORMAL) Prothrombin Time 16.4 SEC (9.8-11.6) 16.6 SEC (9.8-11.6) Activated Partial Thromboplast Time 32.2 SEC (24.3-30.1) Blood Urea Nitrogen 4 MG/DL (7-18) 4 MG/DL (7-18) Albumin 1.7 GM/DL (3.4-5.0) 1.5 GM/DL (3.4-5.0) Calcium Level 7.6 MG/DL (8.5-10.1) 7.1 MG/DL (8.5-10.1) Magnesium Level 1.0 MG/DL (1.5-2.5) Alkaline Phosphatase 162 U/L (45-117) 148 U/L (45-117) Aspartate Amino Transf (AST/SGOT) 215 U/L (15-37) 191 U/L (15-37) Total Bilirubin 2.5 MG/DL (0.2-1.0) 3.8 MG/DL (0.2-1.0) Sodium Level 135 MEQ/L (136-145) Potassium Level 3.3 MEQ/L (3.5-5.1) Lactic Acid Level 2.8 mmol/L (0.4-2.0) Troponin I 0.07 NG/ML (0.02-0.05) Lipase 476 U/L (73-393) Ethyl Alcohol Level 74 MG/DL (0-5) Urine Color DARK-BROWN (YELLW/STRAW) Urine Turbidity HAZY (CLEAR) Urine Bilirubin MOD (NEG) Urine Urobilinogen GREATER THAN 12.0 MG/DL Urine RBC 4 /hpf (0-3) Urine Mucus MANY /lpf (OCC) Creatinine 0.59 MG/DL (0.60-1.30) Lactate Dehydrogenase 334 U/L (87-241) Protein Corrected Calcium 7.1 MG/DL (8.5-10.1) Total Iron Binding Capacity 109 MCG/DL (250-450) Percent Iron Saturation 98.9 % (20-50) Ferritin 1028 NG/ML (26-388) Vitamin B12 Level 1653 PG/ML (193-986) Peritoneal Fluid WBC 120 /MM3 (0-10) Peritoneal Fluid RBC 100 /MM3 (0-0) Test 12/16/17 18:05 12/17/17 08:12 12/17/17 12:49 12/18/17 11:22 Hepatitis C Antibody REACTIVE (NEGATIVE) Red Blood Count 3.09 MIL/MM3 (4.50-5.90) 3.14 MIL/MM3 (4.50-5.90) Hemoglobin 11.4 GM/DL (13.0-17.0) 11.5 GM/DL (13.0-17.0) Hematocrit 33.2 % (39.0-51.0) 33.5 % (39.0-51.0) Mean Corpuscular Volume 107.3 FL (80.0-100.0) 107.0 FL (80.0-100.0) Mean Corpuscular Hemoglobin 36.8 PG (27.0-34.0) 36.6 PG (27.0-34.0) Platelet Count 101 TH/MM3 (150-450) 99 TH/MM3 (150-450) Monocytes (%) (Auto) 13.6 % (0.0-8.0) Monocytes # (Auto) 1.0 TH/MM3 (0-0.9) Prothrombin Time 18.1 SEC (9.8-11.6) Ammonia 87 MCMOL/L (11-32) Troponin I 0.07 NG/ML (0.02-0.05) 0.08 NG/ML (0.02-0.05) Anti-Nuclear Antibody Screen POS (NEG) Albumin 1.5 GM/DL (3.4-5.0) Calcium Level 7.4 MG/DL (8.5-10.1) 7.5 MG/DL (8.5-10.1) Magnesium Level 1.4 MG/DL (1.5-2.5) Alkaline Phosphatase 144 U/L (45-117) Aspartate Amino Transf (AST/SGOT) 177 U/L (15-37) Total Bilirubin 4.3 MG/DL (0.2-1.0) Sodium Level 133 MEQ/L (136-145) 133 MEQ/L (136-145) Protein Corrected Calcium 7.3 MG/DL (8.5-10.1) Chloride Level 96 MEQ/L (98-107) Imaging Last Impressions Cyst Biopsy Asp-Paracentesis US 12/16/17 0000 Signed Impressions: Service Date/Time: Saturday, December 16, 2017 08:35 - CONCLUSION: Uncomplicated ultrasound guided paracentesis. Cornel Sol MD Chest X-Ray 12/15/171943 Signed Impressions: Service Date/Time: Friday, December 15, 2017 19:53 - CONCLUSION: No evidence of acute cardiopulmonary disease. Cornel Cortez MD Abdomen/Pelvis CT 12/15/171943 Signed Impressions: Service Date/Time: Friday, December 15, 2017 22:42 - CONCLUSION: 1. Cirrhotic liver with moderate ascites. There is a recannulized paraumbilical vein consistent with portal hypertension. There are varices in the upper abdomen. 2. Tiny nonobstructing left renal stones. Cornel Cuellar MD PE at Discharge GENERAL: in NAD CARDIOVASCULAR: Regular rate and rhythm without murmurs, gallops, or rubs. RESPIRATORY: Breath sounds equal bilaterally. No accessory muscle use. GASTROINTESTINAL: Abdomen soft, distended. no peritoneal signs. neg TTP MUSCULOSKELETAL: No cyanosis, or edema. BACK: Nontender without obvious deformity. No CVA tenderness. Pt update on day of discharge Follow-up for liver cirrhosis complicated ascites and coagulopathy Patient was very irritated that I asked questions while he was watching TV. He did not want me to lower the volume of the TV down. He had no complaints. He stated that he is tolerating his food. He denies any pain. Patient had no concerns. He remained afebrile. Blood pressure running from systolic blood pressure 90s to 110s. Hospital Course This is a 57 y/o M with cirrhosis who p/w abdominal pain and new onset ascites Cirrhosis: h/o Hepatitis, LFTs improved in comparison to previous labs from - CT Abd/Pelvis w/ Cirrhosis/Portal HTN. - So far hepatitis C is positive. Patient stated that he is aware that he has hepatitis. When I asked him what type he stated the. So far B is negative. - Consult GI consulted and ff. EGD done 12/18/2017 which showed gastric mucosa appeared to be diffusely edematous and somewhat erythemic in a patchy way consistent with some gastritis and maybe portal gastropathy antral biopsies were taken further evaluation - Patient was placed on Propranolol 10mg BID with parameters, Aldactone 50mg daily and Lasix 40mg daily. Blood pressure was mildly low so Aldactone and Lasix dosage decreased. Ascites: New Onset. Progressive abdominal distention, moderate ascites on CT Abd/Pelvis. - s/p IR Diagnostic/Therapeutic Paracentesis. cultures negative. pain improved after paracentesis. - Secondary to alcohol abuse. Extensive education given in told patient if he does not stop drinking this will lead to . Patient stated he understood. Coagulopathy: secondary to liver dysfunction. - INR 1.6 and slowly increase to 1.8, Platelets 95 and was relatively stable. He had no active bleeding during his hospitalization. As stated above patient told not to drink anymore or that this will lead to . Lactic Acidosis: Lactate 2.8, no obvious source of infection, afebrile, no leukocytosis, U/a negative for UTI. CXR w/ no acute findings. Likely secondary to dehydration/alcohol abuse. Repeat Lactate 1.1. Pancreatitis: Abdominal pain improved quickly after paracentesis. He had no problem eating the next morning after admission. Hypomagnesemia: replenish as needed Elevated Trop: Trop 0.07, no c/o chest pain, EKG w no acute ischemia. Cardiac enzymes stable and flat and asymptomatic. No further workup indicated at the moment. Alcohol Abuse: Daily, heavy, high risk for withdrawal. - CIWA, Seizure Precautions, MVT/Thiamine/Folate -No signs of withdrawal. Extensive education given Hepatitis C -Stated that he has a history of hepatitis. When I asked which type he stated B. When I questioned this he became unsure. So far hepatitis B is negative and hepatitis C is positive. Extensive education given to the patient. This can be follow-up as outpatient with GI. Patient stated that he understood. Pt Condition on Discharge: Stable Discharge Disposition: Discharge Home Discharge Time: > 30 minutes Discharge Instructions DIET: Follow Instructions for: As Tolerated, No Restrictions Additional Diet Instructions: 2 L fluid restriction. Activities you can perform: Regular-No Restrictions Follow up Referrals: Gastroenterology with Lauro Hess MD PCP Follow-up - 3-5 Days New Medications: Furosemide (Lasix) 20 Mg Tab 20 MG PO BID for ascites, #60 TAB 0 Refills Spironolactone (Spironolactone) 25 Mg Tab 25 MG PO DAILY for ascites, #30 TAB 0 Refills Pantoprazole (Pantoprazole) 40 Mg Tab 40 MG PO DAILY for gastritis, #30 TAB 0 Refills Propranolol (Propranolol) 10 Mg Tab 10 MG PO Q12HR for cirrhosis, #60 TAB 0 Refills Danay Collado MD Dec 18, 2017 14:56
--- NOTE | 2017-12-18 14:56 | HHI.DCPOC ---
Discharge Care Plan Diagnosis: (1) Hepatitis C (2) Cirrhosis (3) Ascites (4) Elevated troponin (5) Alcohol intoxication (6) Coagulopathy Goals to Promote Your Health * To prevent worsening of your condition and complications * To maintain your health at the optimal level Directions to Meet Your Goals Take your medications as prescribed Follow your dietary instruction Follow activity as directed Keep your appointments as scheduled Take your immunizations and boosters as scheduled If your symptoms worsen call your PCP, if no PCP go to Urgent Care Center or Emergency Room Smoking is Dangerous to Your Health. Avoid second hand smoke Call the 24-hour hour crisis hotline for domestic abuse at Danay Collado MD Dec 18, 2017 14:56
[2017-12-18] MEDS ORDERED: FURO1TAB62 PO (15:17)
[2017-12-18] MEDS ORDERED: SPIR25TA PO (15:17)
[2017-12-18 17:41] LABS: ALPHA-1-ANTITRYPSIN 185 mg/dL (100 - 190)
[2017-12-18 23:54] LABS: HEPATITIS B CORE TOTAL AB REACTIVE (NON-REACTVE); HEPATITIS BE AB NONREACTIVE (NONREACTIVE); HEPATITIS BE AG NONREACTIVE (NON-REACTVE)
[2017-12-20 14:06] LABS: MITOCHONDRIAL ABS LESS THAN 20.0 U (<=20.0)
[2017-12-20 15:59] LABS: ANA PATTERN DIFFUSE
[2017-12-20 17:55] LABS: CERULOPLASMIN 28 mg/dL (18-36)
[2017-12-21 07:52] LABS: HCV RNA PCR IU/ML 339000 IU/mL (0-14)
== END 2017-12-18 17:24 | disposition home or self-care (01) | DRG 432 ==
LOC: NEPC 18:05 → NEDA 12-16 00:41 → NEDH 12-16 07:12 → N07A 12-16 10:57
PROVIDERS: ADMIT Hospitalist; ATTEND Hospitalist
PROC: 0W9G3ZZ Drainage of Peritoneal Cavity, Percutaneous Approach (ICD-10-PCS; 2017-12-16)
PROC: 0DB78ZX Excision of Stomach, Pylorus, Via Natural or Artificial Opening Endoscopic, Diagnostic (ICD-10-PCS; principal; 2017-12-18 13:29)
DX: K70.11 Alcoholic hepatitis with ascites (principal); K85.20 Alcohol induced acute pancreatitis without necrosis or infection; E87.2 Acidosis; D68.4 Acquired coagulation factor deficiency; K76.6 Portal hypertension; E83.42 Hypomagnesemia; K74.60 Unspecified cirrhosis of liver; I10 Essential (primary) hypertension; J44.9 Chronic obstructive pulmonary disease, unspecified; R74.8 Abnormal levels of other serum enzymes; E86.0 Dehydration; D50.9 Iron deficiency anemia, unspecified; K31.89 Other diseases of stomach and duodenum; B19.20 Unspecified viral hepatitis C without hepatic coma; K29.00 Acute gastritis without bleeding; M10.9 Gout, unspecified; F10.229 Alcohol dependence with intoxication, unspecified; F17.210 Nicotine dependence, cigarettes, uncomplicated; Y90.3 Blood alcohol level of 60-79 mg/100 ml; Z23 Encounter for immunization
CPT/HCPCS: 49083; 71045; 74177; 80048; 80053; 80074; 80307; 81001; 82103; 82105; 82140; 82390; 82607; 82728; 82746; 83520; 83540; 83550; 83605; 83615; 83690; 83735; 84157; 84484; 85025; 85027; 85610; 85730; 86038; 86039; 86255; 86317; 86704; 86707; 87070; 87205; 87340; 87350; 87522; 87902; 88112; 88305; 88312; 89051; 90686; 93005; 94150; 94664; 96374; 96375; C1729; J2270; J2405; J2543; J3370; J3475; J7030; J7050; Q2038; Q9967

== ENCOUNTER 2017-12-19 05:44 | Emergency (ER) | payer OTHER ==
[~2017-12-19] VITALS: Ht 175.3 cm; Wt 70.0 kg
[~2017-12-19 05:44] MED LIST changes: +FURO1TAB62 PO; +PANT40TA3 PO; +PROP10TA6 PO; +SPIR25TA PO; -TRAM50TA PO
[2017-12-19 05:57] VITALS: BP 116/67; PULSE 76; RESP 18; TEMP 98.5; O2SAT 96
[2017-12-19] MEDS ORDERED: SODIUM CHLORID 0.9% 500 ML INJ 500 ML IV ONE (06:30)
--- NOTE | 2017-12-19 06:43 | RADRPT ---
EXAM DATE/TIME: 12/19/2017 06:30 [place] COMPARISON: No previous studies available for comparison. INDICATIONS : Abdominal pain. MEDICAL HISTORY : Hypertension. Chronic obstructive pulmonary disease. Hepatitis B. Gout. SURGICAL HISTORY : None. ENCOUNTER: Initial ACUITY: 3 days PAIN SCORE: 5/10 LOCATION: Left abdomen. FINDINGS: Supine and upright views of the abdomen were performed. The abdominal bowel gas pattern is normal. No air fluid levels are seen. No abnormal masses, calcifications, or organomegaly is seen. Vascular calcifications are seen. The visualized lower lungs are clear. No evidence of free intraperitoneal gas. The osseous structures are unremarkable. CONCLUSION: No acute disease. Cornel Cuellar MD on December 19, 2017 at 6:40 Board Certified Radiologist. This report was verified electronically.
--- NOTE | 2017-12-19 06:46 | PD ---
HPI Chief Complaint: Abdominal Pain Time Seen by Provider: 05:55 Travel History International Travel<30 days: No Contact w/Intl Traveler<30days: No Traveled to known affect area: No History of Present Illness HPI pt recently has developed ascites from HEp B and Cirrhosis 3 days ago he was in ED then admitted for paracentesis with @ 5 liters removed , Now he return s with pain in his abdo in LLQ and right flank area, , No pain at the needle port cite where paracentesis was done, now pt has LLQ no BM for 4 days and Nausea, No fever no trauma no other specific complaints , He had trace Troponin 0.07 and 0.08 when discharged today from in. [facility] Past Medical History Cancer: No Cardiovascular Problems: Yes (HTN) COPD: Yes Diminished Hearing: No Endocrine: No Gout: Yes Genitourinary: No Hypertension: Yes Musculoskeletal: No Neurologic: No Psychiatric: No Reproductive: No Respiratory: No Seizures: Yes Past Surgical History Other Surgery: Yes (SKIN GRAFT ) Social History Alcohol Use: Yes ("5-8 beers per day") Tobacco Use: Yes ("1 PPD") Substance Use: No Allergies-Medications (Allergen,Severity, Reaction): Coded Allergies: No Known Allergies (Verified Adverse Reaction, Unknown, 12/19/17) Reported Meds & Prescriptions Reported Meds & Active Scripts Active Spironolactone 25 Mg Tab 25 Mg PO DAILY Lasix (Furosemide) 20 Mg Tab 20 Mg PO BID Pantoprazole (Pantoprazole Sodium) 40 Mg Tab 40 Mg PO DAILY Propranolol (Propranolol HCl) 10 Mg Tab 10 Mg PO Q12HR Review of Systems General / Constitutional: No: Fever, Chills Gastrointestinal: Positive: Nausea, Abdominal Pain, Constipation Physical Exam Narrative GENERAL: slightly disheveled dressed in very warm clothes as it is 30 degrees outside, SKIN: Warm and dry. HEAD: Atraumatic. Normocephalic. EYES: Pupils equal and round. No scleral icterus. No injection or drainage. ENT: No nasal bleeding or discharge. Mucous membranes pink and moist. NECK: Trachea midline. No JVD. CARDIOVASCULAR: Regular rate and rhythm. RESPIRATORY: No accessory muscle use. Clear to auscultation. Breath sounds equal bilaterally. GASTROINTESTINAL: Abdomen distended in LLQ , needle site where tap was non tender no signs of infection LLQ tender, slightly distended. Hepatic and splenic margins not palpable. MUSCULOSKELETAL: Extremities without clubbing, cyanosis, or edema. No obvious deformities. NEUROLOGICAL: Awake and alert. No obvious cranial nerve deficits. Motor grossly within normal limits. Five out of 5 muscle strength in the arms and legs. Normal speech. PSYCHIATRIC: Appropriate mood and affect; insight and judgment normal. Data Data Last Documented VS Vital Signs Date Time Temp Pulse Resp B/P (MAP) Pulse Ox O2 Delivery O2 Flow Rate FiO2 12/19/17 09:17 12/19/17 09:00 82 20 95 Room Air 12/19/17 05:57 98.5 Orders Orders Sodium Chlorid 0.9% 500 Ml Inj (Ns 500 M (12/19/17 06:30) Abdomen, Flat & Upright (12/19/17 ) Complete Blood Count With Diff (12/19/17 06:46) Lactic Acid (12/19/17 06:46) Troponin I (12/19/17 06:46) Comprehensive Metabolic Panel (12/19/17 06:46) Electrocardiogram (12/19/17 ) Ketorolac Inj (Toradol Inj) (12/19/17 07:00) Ed Discharge Order (12/19/17 08:51) Labs Laboratory Tests Test 12/19/17 06:00 12/19/17 06:46 White Blood Count 7.1 TH/MM3 Red Blood Count 3.30 MIL/MM3 Hemoglobin 12.3 GM/DL Hematocrit 35.4 % Mean Corpuscular Volume 107.4 FL Mean Corpuscular Hemoglobin 37.4 PG Mean Corpuscular Hemoglobin Concent 34.8 % Red Cell Distribution Width 13.6 % Platelet Count 114 TH/MM3 Mean Platelet Volume 8.9 FL Neutrophils (%) (Auto) 69.3 % Lymphocytes (%) (Auto) 17.7 % Monocytes (%) (Auto) 10.4 % Eosinophils (%) (Auto) 1.4 % Basophils (%) (Auto) 1.2 % Neutrophils # (Auto) 4.9 TH/MM3 Lymphocytes # (Auto) 1.3 TH/MM3 Monocytes # (Auto) 0.7 TH/MM3 Eosinophils # (Auto) 0.1 TH/MM3 Basophils # (Auto) 0.1 TH/MM3 CBC Comment DIFF FINAL Differential Comment Blood Urea Nitrogen 9 MG/DL Creatinine 0.79 MG/DL Random Glucose 151 MG/DL Total Protein 7.9 GM/DL Albumin 1.5 GM/DL Calcium Level 7.3 MG/DL Alkaline Phosphatase 139 U/L Aspartate Amino Transf (AST/SGOT) 146 U/L Alanine Aminotransferase (ALT/SGPT) 50 U/L Total Bilirubin 2.5 MG/DL Sodium Level 132 MEQ/L Potassium Level 3.9 MEQ/L Chloride Level 95 MEQ/L Carbon Dioxide Level 28.6 MEQ/L Anion Gap 8 MEQ/L Estimat Glomerular Filtration Rate 101 ML/MIN Protein Corrected Calcium 7.0 MG/DL Troponin I 0.06 NG/ML Lactic Acid Level 3.1 mmol/L MDM Medical Decision Making Medical Screen Exam Complete: Yes Emergency Medical Condition: Yes Differential Diagnosis SPB vs ascites or gastritis vs constipation , vs pancreatitis , other Narrative Course pt has NS and Toradol IV and then labs KUB upright and then signed out to next Attending to diagnose and dispo Diagnosis Primary Impression: Abdominal pain Kelechi Sullivan MD Dec 19, 2017 06:46
[2017-12-19] MEDS ORDERED: KETOROLAC TROMETHAMINE 30 MG/ML (IVP) VIAL IV PUSH ONE (07:00)
[2017-12-19 07:03] LABS: AUTOMATED NEUTROPHIL # 4.9 TH/MM3 (1.8-7.7); BASOPHIL # 0.1 TH/MM3 (0-0.2); BASOPHIL % 1.2 % (0.0-2.0); EOSINOPHIL # 0.1 TH/MM3 (0-0.4); EOSINOPHIL % 1.4 % (0.0-4.0); HEMATOCRIT 35.4 % (39.0-51.0); HEMOGLOBIN 12.3 GM/DL (13.0-17.0); LYMPH % 17.7 % (9.0-44.0); LYMPHOCYTE # 1.3 TH/MM3 (1.0-4.8); MEAN CELL VOLUME 107.4 FL (80.0-100.0); MEAN CORPUSCULAR HEMOGLOBIN 37.4 PG (27.0-34.0); MEAN CORPUSCULAR HGB CONC 34.8 % (32.0-36.0); MEAN PLATELET VOLUME 8.9 FL (7.0-11.0); MONO % 10.4 % (0.0-8.0); MONOCYTE # 0.7 TH/MM3 (0-0.9); NEUT % 69.3 % (16.0-70.0); PLATELET COUNT 114 TH/MM3 (150-450); RED CELL DISTRIBUTION WIDTH 13.6 % (11.6-17.2); WHITE BLOOD COUNT 7.1 TH/MM3 (4.0-11.0)
[2017-12-19 07:20] VITALS: BP 107/63; PULSE 85; RESP 24; O2SAT 97
[2017-12-19 07:42] LABS: ALBUMIN 1.5 GM/DL (3.4-5.0); BICARBONATE 28.6 MEQ/L (21.0-32.0); CALCIUM 7.3 MG/DL (8.5-10.1); CREATININE 0.79 MG/DL (0.60-1.30); TOTAL BILIRUBIN ADULT 2.5 MG/DL (0.2-1.0); TOTAL PROTEIN 7.9 GM/DL (6.4-8.2); TROPONIN I 0.06 NG/ML (0.02-0.05)
[2017-12-19 08:30] VITALS: BP 98/86; PULSE 86; RESP 20; O2SAT 98
--- NOTE | 2017-12-19 08:51 | PD ---
Data Data Last Documented VS Vital Signs Date Time Temp Pulse Resp B/P (MAP) Pulse Ox O2 Delivery O2 Flow Rate FiO2 12/19/17 09:17 12/19/17 09:00 82 20 95 Room Air 12/19/17 05:57 98.5 Orders Orders Sodium Chlorid 0.9% 500 Ml Inj (Ns 500 M (12/19/17 06:30) Abdomen, Flat & Upright (12/19/17 ) Complete Blood Count With Diff (12/19/17 06:46) Lactic Acid (12/19/17 06:46) Troponin I (12/19/17 06:46) Comprehensive Metabolic Panel (12/19/17 06:46) Electrocardiogram (12/19/17 ) Ketorolac Inj (Toradol Inj) (12/19/17 07:00) Ed Discharge Order (12/19/17 08:51) Labs Laboratory Tests Test 12/19/17 06:00 12/19/17 06:46 White Blood Count 7.1 TH/MM3 Red Blood Count 3.30 MIL/MM3 Hemoglobin 12.3 GM/DL Hematocrit 35.4 % Mean Corpuscular Volume 107.4 FL Mean Corpuscular Hemoglobin 37.4 PG Mean Corpuscular Hemoglobin Concent 34.8 % Red Cell Distribution Width 13.6 % Platelet Count 114 TH/MM3 Mean Platelet Volume 8.9 FL Neutrophils (%) (Auto) 69.3 % Lymphocytes (%) (Auto) 17.7 % Monocytes (%) (Auto) 10.4 % Eosinophils (%) (Auto) 1.4 % Basophils (%) (Auto) 1.2 % Neutrophils # (Auto) 4.9 TH/MM3 Lymphocytes # (Auto) 1.3 TH/MM3 Monocytes # (Auto) 0.7 TH/MM3 Eosinophils # (Auto) 0.1 TH/MM3 Basophils # (Auto) 0.1 TH/MM3 CBC Comment DIFF FINAL Differential Comment Blood Urea Nitrogen 9 MG/DL Creatinine 0.79 MG/DL Random Glucose 151 MG/DL Total Protein 7.9 GM/DL Albumin 1.5 GM/DL Calcium Level 7.3 MG/DL Alkaline Phosphatase 139 U/L Aspartate Amino Transf (AST/SGOT) 146 U/L Alanine Aminotransferase (ALT/SGPT) 50 U/L Total Bilirubin 2.5 MG/DL Sodium Level 132 MEQ/L Potassium Level 3.9 MEQ/L Chloride Level 95 MEQ/L Carbon Dioxide Level 28.6 MEQ/L Anion Gap 8 MEQ/L Estimat Glomerular Filtration Rate 101 ML/MIN Protein Corrected Calcium 7.0 MG/DL Troponin I 0.06 NG/ML Lactic Acid Level 3.1 mmol/L [facility] Medical Record Reviewed: Yes Supervised Visit with NIYA: No Narrative Course CBC & BMP Diagram 12/19/17 06:00 Total Protein 7.9, Albumin 1.5 L, Calcium Level 7.3 *L, Alkaline Phosphatase 139 H, Aspartate Amino Transf (AST/SGOT) 146 H, Alanine Aminotransferase (ALT/ SGPT) 50, Total Bilirubin 2.5 H Lactic acid as 3 which in this case was considered to be due to tourniquet time. I see no evidence of significant infectious process at this time. The patient was able to get up from sleeping in walk in our pod without difficulty. Blood pressure was low at approximately 8:10 AM 85/50. The patient's blood pressure was trended back 5 years and he has relatively low normal blood pressure which in this case is considered related to recent paracentesis with decrease overall circulating volume in addition to the fact that he was soundly sleeping. Heart rate was in the 80s throughout today's visit. Diagnosis Primary Impression: Cirrhosis Additional Impressions: Ascites Abdominal pain Referrals: Primary Care Physician 2 days Med/Other Pt SpecificInfo: No Change to Meds Disposition: 01 DISCHARGE HOME Condition: Stable Denilson Patel MD Dec 19, 2017 08:51
[2017-12-19 09:00] VITALS: BP 95/57; PULSE 82; RESP 20; O2SAT 95
--- NOTE | 2017-12-19 21:56 | EKG ---
Date Performed: 12/19/2017 Time Performed: 07:28:09 PTAGE: 57 years EKG: Sinus rhythm NORMAL ECG PREVIOUS TRACING : 12/15/2017 20.08 Compared to previous tracing sinus tachycardia is no longer present DOCTOR: Abdon Dominguez Interpretating Date/Time 12/19/2017 21:54:22
== END 2017-12-19 09:37 | disposition home or self-care (01) ==
LOC: NEPC 05:44
DX: K74.60 Unspecified cirrhosis of liver (principal); R18.8 Other ascites; R10.9 Unspecified abdominal pain; F17.200 Nicotine dependence, unspecified, uncomplicated; I10 Essential (primary) hypertension
CPT/HCPCS: 74019; 80053; 83605; 84484; 85025; 93005; 96361; 96374; 99285; J1885; J7040

== ENCOUNTER 2018-01-03 21:21 | Emergency (ER) | payer OTHER ==
[~2018-01-03] VITALS: Ht 175.3 cm; Wt 69.1 kg
[2018-01-03 21:33] VITALS: BP 142/94; PULSE 118; RESP 16; TEMP 98.2; O2SAT 96
[2018-01-03] MEDS ORDERED: SODIUM CHLORIDE 0.9% FLUSH 10 ML FLUSH IV FLUSH PRN (21:45)
[2018-01-03] MEDS ORDERED: traMADol HCL 50 MG TAB PO ONE (21:45)
--- NOTE | 2018-01-03 21:48 | PD ---
HPI Chief Complaint: Abdominal Pain Time Seen by Provider: 21:28 Travel History International Travel<30 days: No Contact w/Intl Traveler<30days: No Traveled to known affect area: No History of Present Illness HPI Patient 57-year-old male with a history of alcoholic liver cirrhosis presents emergency department with left-sided and left upper quadrant abdominal pain, states the fluid is starting to build up on his abdomen again after being drained 3 weeks ago. Denies any chest pain or shortness of breath to me. Mild nausea without vomiting. Despite repeated admissions to the emergency department in the hospital for his liver disease he continues to drink, he states he had a beer today as well. States the pain is moderate, associated with swelling, over the past few days, context as above. PFSH Past Medical History Cancer: No Cardiovascular Problems: Yes (HTN) COPD: Yes Diminished Hearing: No Endocrine: No Gout: Yes Genitourinary: No Hypertension: Yes Medical other: Yes (cirrohsis) Musculoskeletal: No Neurologic: No Psychiatric: No Reproductive: No Respiratory: No Pancreatitis: Yes Seizures: Yes Past Surgical History Other Surgery: Yes (SKIN GRAFT ) Social History Alcohol Use: Yes (2 beers daily) Tobacco Use: Yes ("1 PPD") Substance Use: No Allergies-Medications (Allergen,Severity, Reaction): Coded Allergies: No Known Allergies (Verified Adverse Reaction, Unknown, 01/03/18) Reported Meds & Prescriptions Reported Meds & Active Scripts Active Spironolactone 25 Mg Tab 25 Mg PO DAILY Lasix (Furosemide) 20 Mg Tab 20 Mg PO BID Pantoprazole (Pantoprazole Sodium) 40 Mg Tab 40 Mg PO DAILY Propranolol (Propranolol HCl) 10 Mg Tab 10 Mg PO Q12HR Review of Systems Except as stated in HPI: all other systems reviewed are Neg Physical Exam Narrative GENERAL: Well-developed well-nourished, no obvious distress, appears comfortable SKIN: Focused skin assessment warm/dry. HEAD: Atraumatic. Normocephalic. EYES: Pupils equal and round. No scleral icterus. No injection or drainage. ENT: No nasal bleeding or discharge. Mucous membranes pink and moist. NECK: Trachea midline. No JVD. CARDIOVASCULAR: Regular rate and rhythm. No murmur appreciated. RESPIRATORY: No accessory muscle use. Clear to auscultation. Breath sounds equal bilaterally. GASTROINTESTINAL: Abdomen soft, non-tender, moderately distended with a positive fluid wave consistent with ascites, no peritoneal signs, soft and nontender. There are dilated veins in the abdominal wall consistent with portal hypertension. Hepatic and splenic margins not palpable. MUSCULOSKELETAL: No obvious deformities. No clubbing. No cyanosis. No edema. NEUROLOGICAL: Awake and alert and oriented no obvious cranial nerve deficits. Motor grossly within normal limits. Normal speech. PSYCHIATRIC: Appropriate mood and affect; insight and judgment normal. Data Data Last Documented VS Vital Signs Date Time Temp Pulse Resp B/P (MAP) Pulse Ox O2 Delivery O2 Flow Rate FiO2 01/04/18 01:12 01/03/18 21:33 98.2 118 16 96 Room Air Orders Orders Complete Blood Count With Diff (01/03/18 21:42) Comprehensive Metabolic Panel (01/03/18 21:42) Lipase (01/03/18 21:42) Prothrombin Time / Inr (Pt) (01/03/18 21:42) Act Partial Throm Time (Ptt) (01/03/18 21:42) Iv Access Insert/Monitor (01/03/18 21:42) Ecg Monitoring (01/03/18 21:42) Oximetry (01/03/18 21:42) Sodium Chloride 0.9% Flush (Ns Flush) (01/03/18 21:45) Electrocardiogram (01/03/18 21:42) Tramadol (Ultram) (01/03/18 21:45) Alcohol (Ethanol) (01/03/18 21:46) Calcium Gluconate Inj (Calcium Gluconate (01/03/18 23:00) Potassium Chloride (Kcl) (01/03/18 23:00) Ed Discharge Order (01/04/18 00:52) Labs Laboratory Tests Test 01/03/18 21:46 White Blood Count 8.2 TH/MM3 Red Blood Count 3.39 MIL/MM3 Hemoglobin 12.3 GM/DL Hematocrit 35.6 % Mean Corpuscular Volume 105.0 FL Mean Corpuscular Hemoglobin 36.3 PG Mean Corpuscular Hemoglobin Concent 34.6 % Red Cell Distribution Width 14.4 % Platelet Count 107 TH/MM3 Mean Platelet Volume 9.8 FL Neutrophils (%) (Auto) 64.0 % Lymphocytes (%) (Auto) 24.4 % Monocytes (%) (Auto) 9.1 % Eosinophils (%) (Auto) 1.2 % Basophils (%) (Auto) 1.3 % Neutrophils # (Auto) 5.2 TH/MM3 Lymphocytes # (Auto) 2.0 TH/MM3 Monocytes # (Auto) 0.7 TH/MM3 Eosinophils # (Auto) 0.1 TH/MM3 Basophils # (Auto) 0.1 TH/MM3 CBC Comment DIFF FINAL Differential Comment Prothrombin Time 14.7 SEC Prothromb Time International Ratio 1.5 RATIO Activated Partial Thromboplast Time 30.5 SEC Blood Urea Nitrogen 5 MG/DL Creatinine 0.84 MG/DL Random Glucose 129 MG/DL Total Protein 8.7 GM/DL Albumin 1.7 GM/DL Calcium Level 7.4 MG/DL Alkaline Phosphatase 161 U/L Aspartate Amino Transf (AST/SGOT) 166 U/L Alanine Aminotransferase (ALT/SGPT) 45 U/L Total Bilirubin 1.6 MG/DL Sodium Level 134 MEQ/L Potassium Level 3.0 MEQ/L Chloride Level 93 MEQ/L Carbon Dioxide Level 29.8 MEQ/L Anion Gap 11 MEQ/L Estimat Glomerular Filtration Rate 95 ML/MIN Protein Corrected Calcium MG/DL Lipase 726 U/L Ethyl Alcohol Level 293 MG/DL MDM Medical Decision Making Medical Screen Exam Complete: Yes Emergency Medical Condition: Yes Differential Diagnosis Bacterial peritonitis unlikely, acute abdomen unlikely, chronic liver failure, ascites Narrative Course Patient roomed in the emergency department, abdomen is fairly benign despite his ascites. He was given pain medication, CBC is reassuring however multiple electrolyte abnormalities seen. Minimal elevation in lipase with the patient is not vomiting and is tolerating p.o. in the emergency department. Electrolytes including calcium and potassium were repleted, at this time is no indication for further workup and he appears comfortable. He is stable for discharge and discussed follow-up with the primary care physician or the [facility]. Diagnosis Primary Impression: Abdominal pain Additional Impressions: Ascites Cirrhosis Referrals: [facility] Disposition: 01 DISCHARGE HOME Condition: Stable Jeffery Cordova MD Jan 03, 2018 21:48
[2018-01-03 22:10] LABS: AUTOMATED NEUTROPHIL # 5.2 TH/MM3 (1.8-7.7); BASOPHIL # 0.1 TH/MM3 (0-0.2); BASOPHIL % 1.3 % (0.0-2.0); EOSINOPHIL # 0.1 TH/MM3 (0-0.4); EOSINOPHIL % 1.2 % (0.0-4.0); HEMATOCRIT 35.6 % (39.0-51.0); HEMOGLOBIN 12.3 GM/DL (13.0-17.0); LYMPH % 24.4 % (9.0-44.0); MEAN CORPUSCULAR HEMOGLOBIN 36.3 PG (27.0-34.0); MEAN CORPUSCULAR HGB CONC 34.6 % (32.0-36.0); MEAN PLATELET VOLUME 9.8 FL (7.0-11.0); MONO % 9.1 % (0.0-8.0); MONOCYTE # 0.7 TH/MM3 (0-0.9); PLATELET COUNT 107 TH/MM3 (150-450); RED BLOOD COUNT 3.39 MIL/MM3 (4.50-5.90); RED CELL DISTRIBUTION WIDTH 14.4 % (11.6-17.2); WHITE BLOOD COUNT 8.2 TH/MM3 (4.0-11.0)
[2018-01-03 22:22] LABS: INTERNATIONAL NORMALIZED RATIO 1.5 RATIO; PROTHROMBIN TIME - PATIENT 14.7 SEC (9.8-11.6)
[2018-01-03 22:35] LABS: ALBUMIN 1.7 GM/DL (3.4-5.0); BICARBONATE 29.8 MEQ/L (21.0-32.0); CREATININE 0.84 MG/DL (0.60-1.30); TOTAL BILIRUBIN ADULT 1.6 MG/DL (0.2-1.0); TOTAL PROTEIN 8.7 GM/DL (6.4-8.2)
[2018-01-03 22:40] LABS: CALCIUM 7.4 MG/DL (8.5-10.1)
[2018-01-03] MEDS ORDERED: CALCIUM GLUCONATE INJ 2 GM in DEXTROSE 5% IN WATER 100ML INJ 100 ML IV ONE ×2 (23:00)
[2018-01-03] MEDS ORDERED: POTASSIUM CHLORIDE 20 MEQ CONTROLLED RELEASE TAB PO ONE (23:00)
== END 2018-01-04 01:38 | disposition home or self-care (01) ==
LOC: NEPE 21:21
DX: K70.31 Alcoholic cirrhosis of liver with ascites (principal); I10 Essential (primary) hypertension; J44.9 Chronic obstructive pulmonary disease, unspecified; M10.9 Gout, unspecified; F10.20 Alcohol dependence, uncomplicated; F17.210 Nicotine dependence, cigarettes, uncomplicated; Z79.899 Other long term (current) drug therapy
CPT/HCPCS: 80053; 80307; 83690; 85025; 85610; 85730; 96365; 96366; 99284; J0610